=== PATIENT | female | born 1990 | race Caucasian/White ===

== ENCOUNTER 2016-03-24 09:38 | Emergency (ER) | payer MEDICAID ==
[2016-03-24] MEDS ORDERED: guaiFENesin/CODEINE 5 ML UDC PO STA (11:01)
[2016-03-24] MEDS ORDERED: predniSONE 20 MG TABLET PO STA (11:01)
[2016-03-24] MEDS ORDERED: BENZONATATE 100 MG CAPSULE PO STA (11:01)
[2016-03-24] MEDS ORDERED: ALBUTEROL NEB 2.5 MG/3 ML INH STA (11:02)
[2016-03-24] MEDS ORDERED: ONDANSETRON ODT 4 MG TABLET TL STA (11:04)
[2016-03-24] MEDS ORDERED: predniSONE 20 MG TABLET ONE (11:07)
[2016-03-24] MEDS ORDERED: BENZONATATE 100 MG CAPSULE PO ONE (11:07)
[2016-03-24] MEDS ORDERED: ONDANSETRON ODT 4 MG TABLET ONE (11:07)
[2016-03-24] MEDS ORDERED: guaiFENesin/CODEINE 5 ML UDC ONE (11:07)
[2016-03-24] MEDS ORDERED: ALBUTEROL NEB 2.5 MG/3 ML INH ONE (11:09)
== END 2016-03-24 13:37 | disposition home or self-care (01) ==
DX: J06.9 Acute upper respiratory infection, unspecified (principal); B97.89 Other viral agents as the cause of diseases classified elsewhere; J45.909 Unspecified asthma, uncomplicated; F17.200 Nicotine dependence, unspecified, uncomplicated
CPT/HCPCS: 71020; 87275; 87276; 94640; 99283; 99284; A9270; J7512; J7613; Q0162

== ENCOUNTER 2016-04-30 16:24 | Outpatient (CLI) | payer MEDICAID | END 2016-04-30 16:25 | disposition home or self-care (01) | DX: R05 Cough (principal) ==

== ENCOUNTER 2016-06-27 13:40 | Emergency (ER) | payer MEDICAID, OTHER ==
[2016-06-27] MEDS ORDERED: DEXAMETHASONE 10 MG/ML VIAL PO STA (13:58)
[2016-06-27] MEDS ORDERED: CHERRY SYRUP 10 ML UDC PO ONE (14:02)
[2016-06-27] MEDS ORDERED: DEXAMETHASONE 10 MG/ML VIAL ONE (14:02)
== END 2016-06-27 15:04 | disposition home or self-care (01) ==
DX: J02.9 Acute pharyngitis, unspecified (principal); J45.909 Unspecified asthma, uncomplicated; M19.90 Unspecified osteoarthritis, unspecified site; F17.200 Nicotine dependence, unspecified, uncomplicated
CPT/HCPCS: 87070; 87430; 99283; A9270

== ENCOUNTER 2016-08-30 16:35 | Emergency (ER) | payer OTHER ==
[2016-08-30 16:43] VITALS: BP 127/87
[2016-08-30] MEDS ORDERED: IBUPROFEN 400 MG TABLET PO STA (16:57)
[2016-08-30] MEDS ORDERED: ACETAMINOPHEN 325 MG TABLET PO STA (16:57)
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
[2016-08-30] MEDS ORDERED: ACETAMINOPHEN 325 MG TABLET PO ONE (17:04)
[2016-08-30] MEDS ORDERED: IBUPROFEN 400 MG TABLET PO ONE (17:04)
[2016-08-30 18:14] LABS: HCG UR QUAL NEGATIVE
--- NOTE | 2016-08-30 18:36 | XRAY Preliminary Report ---
Exam: XR Foot 3 View RT IMPRESSION: Normal foot radiography. [facility] SITE ID: [id number]
--- NOTE | 2016-08-30 18:38 | XRAY Preliminary Report ---
Exam: XR Ankle 3 View RT IMPRESSION: Normal ankle radiography. [facility] SITE ID: [id number]
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
--- NOTE | 2016-08-30 18:40 | XRAY Report ---
EXAM: RIGHT ANKLE RADIOGRAPHY EXAM DATE: 08/30/2016 06:09 PM. CLINICAL HISTORY: Injury. COMPARISON: None. TECHNIQUE: 3 views. FINDINGS: Bones: Normal. No fractures or bone lesions. Joints: Normal. No effusion. No subluxations. The ankle mortise is normally aligned. Soft Tissues: Normal. No soft tissue swelling. IMPRESSION: Normal ankle radiography. [facility] Referring Provider Line: [phone] SITE ID: [id number]
== END 2016-08-30 19:14 | disposition home or self-care (01) ==
LOC: ED 16:35
DX: S93.401A Sprain of unspecified ligament of right ankle, initial encounter (principal); S93.601A Unspecified sprain of right foot, initial encounter; X50.1XXA Overexertion from prolonged static or awkward postures, initial encounter; Y93.89 Activity, other specified; R03.0 Elevated blood-pressure reading, without diagnosis of hypertension; F17.200 Nicotine dependence, unspecified, uncomplicated
CPT/HCPCS: 73610; 73630; 81025; 99283; A9270

== ENCOUNTER 2016-10-30 08:21 | Outpatient (CLI) | payer OTHER ==
[2016-10-30 12:09] LABS: BILIRUBIN,URINE NEGATIVE (NEGATIVE); PH,URINE 7.5 PH (5.0-7.5)
[2016-10-30 12:19] LABS: WBC,URINE 0-3 /HPF (0-5)
[2016-10-30 18:55] LABS: BASOPHILS # (AUTO) 0.1 10^3/uL (0.0-0.1); BASOPHILS % (AUTO) 0.9 %; EOSINOPHILS # (AUTO) 0.5 10^3/uL (0.0-0.7); EOSINOPHILS % (AUTO) 5.9 %; HCT - HEMATOCRIT 40.2 % (37.0-47.0); HGB - HEMOGLOBIN 13.5 g/dL (12.0-16.0); LYMPHOCYTES # (AUTO) 1.6 10^3/uL (1.5-3.5); LYMPHOCYTES % (AUTO) 20.4 %; MEAN CORPUSCULAR HEMOGLOBIN 33.2 pg (27.0-31.0); MEAN CORPUSCULAR HGB CONC 33.6 g/dL (32.0-36.0); MEAN CORPUSCULAR VOLUME 98.6 fL (81.0-99.0); MEAN PLATELET VOLUME 8.6 fL (7.9-10.8); MONOCYTES # (AUTO) 0.5 10^3/uL (0.0-1.0); MONOCYTES % (AUTO) 6.7 %; NEUTROPHILS # (AUTO) 5.3 10^3/uL (1.5-6.6); NEUTROPHILS % (AUTO) 66.1 %; NUCLEATED RED BLOOD CELLS AUTO 0.1 /100WBC; RED BLOOD COUNT 4.08 10^6/uL (4.20-5.40); RED CELL DISTRIBUTION WIDTH 12.7 % (12.0-15.0)
== END 2016-10-30 08:22 | disposition home or self-care (01) ==
LOC: LAB.F 08:21
PROVIDERS: ATTEND Obstetrics & Gynecology
DX: Z36 Encounter for antenatal screening of mother (principal)
CPT/HCPCS: 36415; 81001; 85025; 86762; 86780; 86850; 86900; 86901; 87340; 87389

== ENCOUNTER 2016-11-15 13:26 | Emergency (ER) | payer OTHER ==
[2016-11-15 13:40] VITALS: BP 127/76
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
== END 2016-11-15 14:30 | disposition home or self-care (01) ==
LOC: ED 13:26
DX: S61.212A Laceration without foreign body of right middle finger without damage to nail, initial encounter (principal); W26.0XXA Contact with knife, initial encounter; F17.209 Nicotine dependence, unspecified, with unspecified nicotine-induced disorders
CPT/HCPCS: 1040M; 99281; 99283

== ENCOUNTER 2017-01-23 07:24 | Outpatient (CLI) | payer OTHER ==
--- NOTE | 2017-01-23 10:31 | Ultrasound Report ---
OB ULTRASOUND: 01/23/2017 CLINICAL INDICATION: anatomy. TECHNIQUE: Real-time scanning was performed with brewery representative static images obtained. LAST MENSTRUAL PERIOD 08/30/2016 Clinical Age 20 weeks 1 day US Age 21 weeks 0 days EFW [place] 398 EFW% Hadlock --- Heart Rate 154 bpm EDC 06/11/2017 US EDC 06/05/2017 BPD [place] 20 weeks 4 days; Mean mm 48 HC [place] 20 weeks 6 days; Mean mm 185 AC [place] 21 weeks 0 days; Mean mm 158 FL [place] 21 weeks 3 days; Mean mm 36 Presentation breech Placental Location anterior Cervical Length 4.8 cm Amniotic Fluid 10.1 cm FINDINGS There is a single viable intrauterine gestation, in breech presentation. heart rate is 154 BPM. The placenta is anterior, without evidence of previa. Amniotic fluid volume is subjectively normal. By size, the fetus measures 21 weeks 0 days (20 weeks 1 day by office dating). The following anatomic structures were visualized and appear normal: The intracranial contents, including the ventricles and posterior fossa; the lips and orbits; the spine; the heart, including 4-chamber view and outflow tracts, and diaphragm; the abdominal contents, including the stomach, the bilateral kidneys, and urinary bladder, as well as a normal 3- vessel cord insertion; 4 limbs. No free fluid or adnexal lesion is appreciated. IMPRESSION: SINGLE VIABLE INTRAUTERINE GESTATION, WITH SIZE IN KEEPING WITH OFFICE DATING. NORMAL ANATOMIC SURVEY. [facility]
== END 2017-01-23 07:25 | disposition home or self-care (01) ==
LOC: DI 07:24
PROVIDERS: ATTEND Obstetrics & Gynecology
DX: Z34.02 Encounter for supervision of normal first pregnancy, second trimester (principal)
CPT/HCPCS: 76811

== ENCOUNTER 2017-02-21 08:58 | Outpatient (CLI) | payer OTHER ==
[2017-02-21 10:14] LABS: HCT - HEMATOCRIT 32.9 % (37.0-47.0); HGB - HEMOGLOBIN 11.7 g/dL (12.0-16.0); MEAN CORPUSCULAR HEMOGLOBIN 33.8 pg (27.0-31.0); MEAN CORPUSCULAR HGB CONC 35.5 g/dL (32.0-36.0); MEAN CORPUSCULAR VOLUME 95.2 fL (81.0-99.0); MEAN PLATELET VOLUME 7.8 fL (7.9-10.8); RED BLOOD COUNT 3.45 10^6/uL (4.20-5.40); RED CELL DISTRIBUTION WIDTH 12.7 % (12.0-15.0); WHITE BLOOD COUNT 8.5 x10^3/uL (4.8-10.8)
== END 2017-02-21 08:59 | disposition home or self-care (01) ==
LOC: LAB 08:58
PROVIDERS: ATTEND Obstetrics & Gynecology
DX: Z34.90 Encounter for supervision of normal pregnancy, unspecified, unspecified trimester (principal)
CPT/HCPCS: 36415; 82950; 86850

== ENCOUNTER 2017-03-17 09:46 | Outpatient (CLI) | payer MEDICAID ==
[2017-03-17 10:24] VITALS: BP 102/63
== END 2017-03-17 10:55 | disposition home or self-care (01) ==
LOC: WFO 09:46 → FBP 09:47 → WFO 10:55
PROVIDERS: ATTEND Obstetrics & Gynecology
DX: O99.89 Other specified diseases and conditions complicating pregnancy, childbirth and the puerperium (principal); R19.7 Diarrhea, unspecified; R11.0 Nausea; Z3A.27 27 weeks gestation of pregnancy
CPT/HCPCS: 99212

== ENCOUNTER 2017-05-13 09:13 | Outpatient (CLI) | payer MEDICAID | END 2017-05-13 09:14 | disposition home or self-care (01) | LOC: LAB.R 09:13 | PROVIDERS: ATTEND Obstetrics & Gynecology | DX: Z36.85 Encounter for antenatal screening for Streptococcus B (principal) | CPT/HCPCS: 87081 ==

== ENCOUNTER 2017-05-28 14:29 | Outpatient (CLI) | payer MEDICAID ==
[2017-05-28 14:47] VITALS: BP 109/71
[2017-05-28 15:46] LABS: RUPTURE OF MEMBRANES PLUS NEGATIVE (NEGATIVE)
--- NOTE | 2017-06-04 09:58 | PROVIDER PROGRESS NOTE ---
Subjective - Prog Note Date Prog Note Date: 05/28/17 Prog Note Time: 15:50 - Subjective Pt reports feeling: No change Subjective: Ms. Palmer is a 27-year-old 3 para 0020 woman at 38 weeks gestation who comes to labor and delivery complaining of uterine cramping occurring every 5 minutes. She reports a vaginal discharge and is uncertain as to whether or not her membranes have ruptured. She has noticed symptoms suggestive of PIH or UTI. She has no recent fevers chills or re-illness. Uterus appropriate size normal resting tone cannot really palpate significant contractions. No tenderness Vagina no blood or discharge ROM test negative Cervix 1 cm 20% to 30% effaced soft -2 station Patient not in labor. She was discharged home with instructions and will keep her next scheduled obstetrical appointment in a week
== END 2017-05-28 15:50 | disposition home or self-care (01) ==
LOC: WFO 14:29 → FBP 14:30 → WFO 15:50
PROVIDERS: ATTEND Obstetrics & Gynecology
DX: Z34.83 Encounter for supervision of other normal pregnancy, third trimester (principal)
CPT/HCPCS: 84112; 99213

== ENCOUNTER 2017-06-06 15:09 | Outpatient (CLI) | payer MEDICAID ==
[2017-06-06 15:25] VITALS: BP 106/58
[2017-06-06] MEDS ORDERED: ZOLPIDEM 5 MG TABLET PO ONE (16:50)
== END 2017-06-06 17:30 | disposition home or self-care (01) ==
LOC: WFO 15:09 → FBP 15:10 → WFO 17:30
PROVIDERS: ATTEND Obstetrics & Gynecology
DX: Z34.83 Encounter for supervision of other normal pregnancy, third trimester (principal)
CPT/HCPCS: 99212; A9270

== ENCOUNTER 2017-06-14 10:31 | Outpatient (CLI) | payer MEDICAID ==
[2017-06-14 12:13] VITALS: BP 115/69
== END 2017-06-14 11:50 | disposition home or self-care (01) ==
LOC: WFO 10:31 → FBP 10:33 → WFO 11:50
PROVIDERS: ATTEND Obstetrics & Gynecology
DX: O47.1 False labor at or after 37 completed weeks of gestation (principal); O99.213 Obesity complicating pregnancy, third trimester; E66.01 Morbid (severe) obesity due to excess calories; Z3A.40 40 weeks gestation of pregnancy; Z68.38 Body mass index [BMI] 38.0-38.9, adult
CPT/HCPCS: 99213

== ENCOUNTER 2017-06-15 09:08 | Outpatient (CLI) | payer MEDICAID ==
[2017-06-15 10:07] LABS: RUPTURE OF MEMBRANES PLUS NEGATIVE (NEGATIVE)
--- NOTE | 2017-06-15 14:29 | PROVIDER PROGRESS NOTE ---
Subjective - Prog Note Date Prog Note Date: 06/15/17 Prog Note Time: 14:25 - Subjective Pt reports feeling: No change (Patient was frightened evaluated on Friday night for uterine contractions which eventually subsided. Baseline cervical exam was 1 cm, 60-70% effaced, Posterior and +1 station. Patient returned this morning suspecting ruptured membranes. Amniotic fluid test was negative and cervix was still at 1 cm 70% and +1 station. She had mild to moderate contractions that were every 4 minutes. tracing was category 1 with a baseline of 130s. Clinically size seen large and ultrasound was obtained. That documented a 4247 g (94th percentile) fetus with abdominal circumference greater than head circumference and in a vertex presentation. JOHNATHAN was normal. Currently labor and delivery was saturated and so ripening could not be offered. She is scheduled to see Dr. Patel on Friday to schedule postdates induction. Will discuss case with Dr. Kemp and Dr. Spangler for a Friday or Friday morning cervical ripening.) Objective - Vital Signs/Intake & Output Vital Signs: Vital Signs x48h Temp Pulse Resp BP Pulse Ox 06/15/17 09:24 98.2 F 84 16 107/70 99 - Lab Results Other Labs: Lab Results x24hrs 06/15/17 Range/Units 08:35 Membranes Rupture NEGATIVE (NEGATIVE)
[2017-06-15 14:38] VITALS: BP 122/80
--- NOTE | 2017-06-15 15:30 | Ultrasound Report ---
EXAM: LIMITED OBSTETRICAL ULTRASOUND EXAM DATE: 06/15/2017 12:32 PM. CLINICAL HISTORY: Postdates. COMPARISON: None. TECHNIQUE: Real-time sonographic evaluation of the fetus performed by the medical laboratory technical officer. Multiple repre sentative static images were saved for review. Additional transvaginal imaging to more accurately joy luate cervical length/placental position/etc. DATING: Established EGA 40 weeks 4 days with PAUL 06/11/2017. GENERAL EVALUATION Mead . Cardiac activity: 122 bpm. movement: Few breath motions with no gross movement. Presentation: Cephalic Placenta: Anterior position. Amniotic fluid: Normal. JOHNATHAN 12.3 cm. MVP 3.7 cm. ANATOMY Biparietal diameter: 9.8 cm. Head circumference: 35.1 cm Abdominal circumference: 37.6 cm Femoral length: 7.8 cm Estimated weight 4247 g in the 94th percentile. MATERNAL STRUCTURES The cervix is not visualized. IMPRESSION: 1. Mead live intrauterine in the cephalic presentation. 2. Estimated weight 4247 g in the 94th percentile. [facility] Referring Provider Line: [phone] SITE ID: [id number]
--- NOTE | 2017-06-15 15:30 | Ultrasound Preliminary Report ---
Exam: US OB LIMITED IMPRESSION: 1. [place] live intrauterine in the cephalic presentation. 2. Estimated weight 4247 g in the 94th percentile. [facility] SITE ID: [id number]
== END 2017-06-15 14:15 | disposition home or self-care (01) ==
LOC: WFO 09:08 → FBP 09:10 → WFO 14:15
PROVIDERS: ATTEND Obstetrics & Gynecology
DX: O47.1 False labor at or after 37 completed weeks of gestation (principal); O48.0 Post-term pregnancy; Z3A.40 40 weeks gestation of pregnancy
CPT/HCPCS: 76815; 84112; 99213

== ENCOUNTER 2017-06-16 04:49 | Inpatient (IN) | payer MEDICAID ==
[2017-06-16] MEDS ORDERED: SODIUM CHLORIDE FLUSH 0.9% 10 ML SYRINGE IVP PRN (06:55)
[2017-06-16 07:41] LABS: BASOPHILS # (AUTO) 0.1 10^3/uL (0.0-0.1); EOSINOPHILS # (AUTO) 0.1 10^3/uL (0.0-0.7); HGB - HEMOGLOBIN 12.6 g/dL (12.0-16.0); LYMPHOCYTES # (AUTO) 1.7 10^3/uL (1.5-3.5); LYMPHOCYTES % (AUTO) 11.1 %; MEAN CORPUSCULAR HEMOGLOBIN 32.8 pg (27.0-31.0); MEAN CORPUSCULAR HGB CONC 35.1 g/dL (32.0-36.0); MEAN CORPUSCULAR VOLUME 93.4 fL (81.0-99.0); MEAN PLATELET VOLUME 8.7 fL (7.9-10.8); MONOCYTES # (AUTO) 0.7 10^3/uL (0.0-1.0); MONOCYTES % (AUTO) 4.4 %; NEUTROPHILS # (AUTO) 12.4 10^3/uL (1.5-6.6); NEUTROPHILS % (AUTO) 82.5 %; PLT - PLATELET COUNT 214 10^3/uL (130-450); RED BLOOD COUNT 3.86 10^6/uL (4.20-5.40)
[2017-06-16] MEDS ORDERED: SODIUM CHLORIDE FLUSH 0.9% 10 ML SYRINGE IVP SCH (09:00)
--- NOTE | 2017-06-16 09:02 | HISTORY & PHYSICAL EXAMINATION ---
DATE OF SERVICE: 06/16/2017 Physician: Oswaldo Hein MD DIAGNOSES 1. A 40-week 1-day gestation. 2. Labor. 3. Large for gestational age fetus (4247 grams, 94th percentile). 4. Asthma, controlled. HISTORY OF PRESENT ILLNESS: The patient is a 27-year-old 2, para 0-0-1-0 (EAB x1) who notes increasing contraction intensity and frequency at 2300 hours on 15 June. Throughout the processing archivist, the intensity increased and she notes pelvic pressure and increased bloody show. She had been seen twice this weekend and her baseline exam was 1 cm, 60%, posterior, and +1 station. Her current exam is 3 cm, 100%, +1 station, and near mid position with soft cervix. Cervical change has been demonstrated. Membranes are intact. Prior Amniostat test was negative. At the time of her last evaluation, Claude maneuvers demonstrated a larger than expected fetus. An ultrasound was obtained on 15 June that documented a 4247 gram, 94th percentile, vertex fetus. Consideration was made for cervical ripening and possible induction before 41 weeks; however, Labor and Delivery was saturated, and elective case could not be admitted. She was given warning sign and call-back instructions. She went into labor last night as previously noted. She reports no air hunger. No wheezing or cough currently. Her asthma is in control with handheld nebulizers. She has no signs or symptoms of preeclampsia. There is no fever or recent illness noted. BASELINE LABS: Pap smear ASCUS, HPV negative, GC chlamydia negative, blood type O positive, antibody screen negative, baseline hemoglobin 13.5, RPR negative, rubella immune. Hepatitis B surface antigen negative, HIV negative, urinalysis normal 1 hour glucose challenge test normal at 132. GBS culture negative. PAST MEDICAL HISTORY 1. Benign breast lump investigated with mammography in 2013, currently resolved. 2. Patient has a history of asthma, currently controlled with a handheld nebulizer. PAST SURGICAL HISTORY: Arthroscopy, 2010. ALLERGIES: SENSITIVE TO PENICILLIN. MEDICATIONS 1. vitamins and iron. 2. Handheld albuterol nebulizer. FAMILY HISTORY: No congenital anomalies or inheritable diseases reported; CAD in grandmother, breast cancer in maternal aunt, diabetes in maternal grandmother. REVIEW OF SYSTEMS CONSTITUTIONAL: Negative. No fevers, chills, shortness of breath, etc. HEENT: No current URIs, bronchitis, etc. CARDIOVASCULAR: Negative. PULMONARY: Negative. Last asthma episode over a month ago. BREASTS: Negative. GASTROINTESTINAL: Negative. GENITOURINARY: Negative. No STD history. MUSCULOSKELETAL: Negative. DERMATOLOGIC: Negative. NEUROLOGIC: Negative except for occasional headache, nonproblematic. PHYSICAL EXAMINATION GENERAL: Patient uncomfortable on hospital [facility]. Contractions noted about every 3 to 2-1/2 minutes. VITAL SIGNS: Normotensive, afebrile. HEENT: Supple neck. No thyromegaly. Moist mucous membranes. LUNGS: Clear to auscultation. CARDIOVASCULAR: Regular. No murmur. No gallop. BREASTS: Negative, deferred. ABDOMEN: Markedly obese with pannus. Liver span about 12-15 cm. UTERUS: Claude maneuvers show LGA fetus, vertex presentation. Contractions about every 3 minutes, moderate. HEART TRACING: Contractions difficult to see on tracing due to body habitus. Baseline 130s, medium variability cat 1 strip. No worrisome decels. EXTREMITIES: Good movement of all 4 extremities, mild pedal edema bilaterally, ruptured varicosity lateral aspect of left calf. No Homans sign. SKIN: No obvious rash or wound. NEUROLOGIC: Grossly intact. Patellar reflexes 3+ and equal. ASSESSMENT: Patient has made a significant change from baseline exam and now appears to be moving into and through late in the labor. The fetus is large, just about the 95th percentile, concerning the abdominal circumference is greater than head circumference. In discussing her diet, she does have an affection for pasta. We may want to check a hemoglobin A1c since her glucose challenge test was 132, close to the 135 cut off. Clinical evaluation though finds the pelvis to be adequate for a 8-1/2 to 9-pound fetus. Additionally, the descent of the head to +1 station is somewhat reassuring. Patient's asthma seems controlled at the current time. PLAN: Patient admitted and desires epidural. Will debrief Dr. Oswaldo Spangler, reconciliation coordinator coming on to call. TD: 06/16/2017 08:23
[2017-06-16] MEDS: LACTATED RINGERS 1,000 ML IV SCH ×4 (11:25→21:07)
[2017-06-16] MEDS ORDERED: fent/BUPIV 2 MCG/0.125% 250 ML EP ONE (12:07)
--- NOTE | 2017-06-16 15:08 | PROVIDER PROGRESS NOTE ---
Labor Progress Note - Uterine Monitoring Uterine Monitoring Mode: positive: External toco (Base line 120-130 with accelerations) : 4-5 Contraction Intensity: positive: Moderate to strong Uterine Resting Tone: positive: Soft - Monitoring Monitor Mode: positive: External ultrasound Heart Rate Baseline: 120-30 Heart Rate Variability: positive: Moderate (6-25 bmp) Accelerations: positive: Present, 15x15 Decelerations: positive: Early, Intermittent (<50% x20 min) - Vaginal Exam Dilation (in cm): 5 Effacement (%): 80 Station: -1 Cervical Position: Midposition - Labor Progress Note Labor Progress Note/Additional Text: Baby is haveing some early deceelerations with contractions BP 90/49 250 Ml bolis given.
[2017-06-16] MEDS ORDERED: fentaNYL 100 MCG/2 ML VIAL ONE (15:44)
[2017-06-16] MEDS ORDERED: ROPIVACAINE 0.2% PF 10 ML VIAL ONE (15:46)
--- NOTE | 2017-06-16 16:34 | PROVIDER PROGRESS NOTE ---
Labor Progress Note - Uterine Monitoring Uterine Monitoring Mode: positive: IUPC Contraction Frequency (min/apart): 3-4 Contraction Intensity: positive: Moderate Uterine Resting Tone: positive: Soft - Monitoring Monitor Mode: positive: Spiral electrode Heart Rate Baseline: 120 Heart Rate Variability: positive: Moderate (6-25 bmp) Accelerations: positive: Absent Decelerations: positive: Early (Resolved with IV bolus of 500 ml) Strip Review: positive: Category II ( accelerations disappeared but beat to beat varrribility still present. Pt had epsods of hypotension responded to fluid challange of 500 ml. early declerations resolved with fluid. Pt has had position change and O2.) - Vaginal Exam Dilation (in cm): 6 Effacement (%): 90 Station: -2 Cervical Position: Midposition - Labor Progress Note Labor Progress Note/Additional Text: cerevix progressing with contractions and time strip improving with fluid challenge. will continue to monitor. OR is on stand by.
[2017-06-16] MEDS ORDERED: TERBUTALINE 1 MG/ML VIAL SUBQ ONE (17:05)
[2017-06-16] MEDS ORDERED: CITRIC ACID/SODIUM CITRATE 15 ML UDC PO ONE (17:17)
[2017-06-16] MEDS ORDERED: ONDANSETRON 4 MG/2 ML VIAL IVP ONE (17:45)
[2017-06-16] MEDS ORDERED: LIDOCAINE-MPF 2% 5 ML VIAL IM ONE (17:45)
[2017-06-16] MEDS ORDERED: DEXAMETHASONE 4 MG/ML VIAL IVP ONE (17:45)
[2017-06-16] MEDS ORDERED: PROPOFOL 200 MG/20 ML VIAL IVP ONE (17:45)
[2017-06-16] MEDS ORDERED: ACETAMINOPHEN 1,000 MG/100 ML 100 ML IV ONE (17:45)
[2017-06-16] MEDS ORDERED: OXYTOCIN 10 UNIT/ML VIAL IV ONE (17:45)
[2017-06-16] MEDS ORDERED: MORPHINE PF 10 MG/10 ML AMP EPI ONE (17:45)
[2017-06-16] MEDS ORDERED: LACTATED RINGERS 1,000 ML IV ONE ×2 (18:02→18:03)
[2017-06-16 18:03] LABS: CORD ARTERIAL BLD BASE EXCESS -4.6; CORD ARTERIAL BLOOD HCO3 22.1; CORD ARTERIAL BLOOD PCO2 46.3; CORD ARTERIAL BLOOD PO2 14.6; CORD ARTERIAL BLOOD TOTAL CO2 23.5; CORD VENOUS BLD PO2 34.8; CORD VENOUS BLOOD PCO2 41.4; CORD VENOUS BLOOD PH 7.334
[2017-06-16 18:04] LABS: CORD VENOUS BLOOD BASE EXCESS -4.1; CORD VENOUS BLOOD HCO3 21.5; CORD VENOUS BLOOD OXYGEN SAT 81.1; CORD VENOUS BLOOD TOTAL CO2 22.8
--- NOTE | 2017-06-16 18:55 | PROVIDER PROGRESS NOTE ---
Labor Progress Note - Uterine Monitoring Uterine Monitoring Mode: positive: IUPC Contraction Frequency (min/apart): 3-4 Contraction Intensity: positive: Moderate to strong Uterine Resting Tone: positive: Soft - Monitoring Monitor Mode: positive: Spiral electrode Heart Rate Baseline: 115-120 Heart Rate Variability: positive: Moderate (6-25 bmp) Accelerations: positive: Present, 15x15 Decelerations: positive: Late (down to the 90-70), Recurrent (>50% x20 min ) Strip Review: positive: Category II - Vaginal Exam Dilation (in cm): 6 Effacement (%): 909 Station: -1 Cervical Position: Midposition - Labor Progress Note Labor Progress Note/Additional Text: pt is a Primip 6 cm with 5 hours of anticipated labor. RnB YSABEL. Late entry 17:14
--- NOTE | 2017-06-16 19:06 | OPERATIVE REPORT ---
Operative Report - General Admit Date: 06/16/17 Procedure Date: 06/16/17 Planned Procedure: PLTC/S Pre-Op Diagnosis: intolerance of Labor Procedure Performed: PLTC/S Post Op Diagnosis: intolerance oflabor, Nucal cord X1 with second loop intersperced - Procedure Note Primary Surgeon: yogi Spangler MD Secondary Surgeon: Becka THAKKAR Anesthesia Provider: Mario Alberto Sadler Anesthesia Technique: Epidural Pathology: Placenta IV Fluids (mL): 1,200 Estimated Blood Loss (mL): 800 Urine Output (mL): 500 Drain/Tube Type: Other (Wound Vac)
[2017-06-16] MEDS ORDERED: diphenhydrAMINE INJ 50 MG/ML VIAL IVP PRN (19:09)
[2017-06-16] MEDS ORDERED: ONDANSETRON 4 MG/2 ML VIAL IVP PRN (19:09)
--- NOTE | 2017-06-16 20:39 | OPERATIVE REPORT ---
DATE OF SERVICE: 06/16/2017 Physician: Oswaldo Spangler MD PREOPERATIVE DIAGNOSES 1. A 27-year-old G1, P0 female, who is 40.6 weeks. 2. intolerance of labor. POSTOPERATIVE DIAGNOSES 1. A 27-year-old G1, P0 female, who is 40.6 weeks. 2. intolerance of labor. 3. Nuchal cord x1 with second bandolier cord. NAME OF PROCEDURE: Primary low transverse section. SURGEON: Oswaldo Spangler MD AGRICULTURAL ENGINEERING TECHNICIAN: NETO Rodriguez, certified nurse lead warehouse associate. ASSEMBLY MACHINE OPERATOR: Mario Alberto Sadler. ANESTHETIC: Epidural with narcotic augmentation. ESTIMATED BLOOD LOSS: 800 mL IV FLUIDS: 1200 mL URINE OUTPUT: 500 mL SPECIMENS: Placenta to pathology. PROCEDURE: Following adequate epidural anesthesia, the patient was placed in the supine position, Mcgregor catheter inserted previously, and then draped. heart rate was noted to be 135 with episodes down to 111. A timeout was performed, following which a Pfannenstiel incision was carried down through the subcutaneous tissue to the fascia. The fascia was incised transversely. Then, using both blunt and sharp dissection, it was freed from the rectus abdominis. The rectus was split along the midline high. Care was taken to avoid injury to bowel or bladder. This incision was carried superiorly and inferiorly. A bladder flap was then developed using both blunt and sharp dissection, following which a low transverse uterine incision was accomplished using a 10 blade and bandage scissors. The head of the was lifted out of the pelvis. The head was delivered. The oropharynx was bulb suctioned. Following this, the remainder of the was delivered without difficulty. At the time of delivery, there was evidence of a nuchal cord with a second loop of cord being interposed between the shoulder and the uterine wall. Amniotic fluid was clear. Placenta was spontaneous delivered. The uterus was exteriorized, wrapped in a moist lap, and cleansed in the internal portion with a dry lap. The incision was closed using a running locking suture of 0 Vicryl with an imbricating layer of 0 Vicryl. This was inspected for hemostasis. This was noted to be intact. The cul-de-sac was then suctioned. Estimated blood loss was determined at that time, and then the cul-de-sac was irrigated with sterile saline. The uterus was delivered back in the abdominal cavity. There was some difficulty with pain control at this time, so her epidural was augmented with IV morphine. The uterine incision was inspected and noted to be dry. The peritoneum was then closed utilizing 2-0 Vicryl. The rectus was irrigated and no bleeders were noted, so the fascia was closed using looped 0 PDS in a running suture. Subcutaneous tissue was irrigated. Bleeders were treated with electrocautery. The fascia was then closed with 2-0 Vicryl. The incision itself was closed using 4-0 Monocryl subcuticular. Following this, a wound VAC was placed, following spraying the area with tincture of benzoin. This showed evidence of a good seal. The patient tolerated the procedure well and was taken to Recovery in stable condition. Sponge and needle counts were correct. TD: 06/16/2017 20:38
[2017-06-16] MEDS ORDERED: OXYTOCIN/SODIUM CHLORIDE 500 ML IV ONE (21:27)
[2017-06-16] MEDS: oxyCODONE 5 MG TABLET PO PRN (21:39)
[2017-06-17] MEDS: KETOROLAC 30 MG/ML VIAL IV SCH ×3 (00:21→13:10)
[2017-06-17] MEDS ORDERED: SODIUM CHLORIDE FLUSH 0.9% 10 ML SYRINGE IVP SCH (01:00)
[2017-06-17] MEDS: oxyCODONE 5 MG TABLET PO PRN ×5 (01:34→20:08)
[2017-06-17] MEDS: ACETAMINOPHEN 500 MG TABLET PO SCH ×3 (01:35→17:57)
[2017-06-17] MEDS: LACTATED RINGERS 1,000 ML IV SCH (02:00)
[2017-06-17 05:36] LABS: BASOPHILS # (AUTO) 0.1 10^3/uL (0.0-0.1); BASOPHILS % (AUTO) 0.4 %; EOSINOPHILS % (AUTO) 0.2 %; HGB - HEMOGLOBIN 10.3 g/dL (12.0-16.0); LYMPHOCYTES # (AUTO) 1.8 10^3/uL (1.5-3.5); LYMPHOCYTES % (AUTO) 10.6 %; MEAN CORPUSCULAR HGB CONC 34.1 g/dL (32.0-36.0); MEAN CORPUSCULAR VOLUME 93.9 fL (81.0-99.0); MEAN PLATELET VOLUME 8.8 fL (7.9-10.8); MONOCYTES % (AUTO) 5.8 %; NEUTROPHILS # (AUTO) 14.3 10^3/uL (1.5-6.6); PLT - PLATELET COUNT 207 10^3/uL (130-450); RED BLOOD COUNT 3.22 10^6/uL (4.20-5.40); RED CELL DISTRIBUTION WIDTH 13.1 % (12.0-15.0); WHITE BLOOD COUNT 17.3 x10^3/uL (4.8-10.8)
--- NOTE | 2017-06-17 08:43 | PROVIDER PROGRESS NOTE ---
Subjective - General Admit Date: 06/16/17 Procedure Date: 06/16/17 Post Op Days: 1 Procedure Performed: PLTC/S - Review of Systems Wound/Incisions: positive: Dressing dry and intact (wound vac functioning well) General: positive: No symptoms HEENT: positive: No symptoms Pulmonary: positive: Wheezing Cardiovascular: positive: No symptoms. negative: Chest pain Gastrointestinal: positive: No symptoms. negative: Vomiting, Flatus Objective - Patient Data Reviewed Vital Signs: Yes Vital Signs: Vital Signs x48h Temp Pulse Resp BP Pulse Ox 06/17/17 08:13 37.2 C 64 16 104/55 L 98 06/17/17 03:25 37.2 C 62 16 97/56 L 98 Weight: Weight 06/15/17 06/16/17 06/17/17 23:59 23:59 23:59 Weight (kg) 108.862 kg Intake & Output: Intake and Output Totals x24h 06/15/17 06/16/17 06/17/17 23:59 23:59 23:59 Intake Total 1271.05 1521.333 Output Total 600 1075 Balance 671.05 446.333 - Lab Results Lab Results: 06/17/17 05:10 Other Lab Results: Lab Results x24hrs 06/17/17 06/16/17 Range/Units 05:10 17:50 WBC 17.3 H (4.8-10.8) x10^3/uL RBC 3.22 L (4.20-5.40) 10^6/uL Hgb 10.3 L (12.0-16.0) g/dL Hct 30.3 L (37.0-47.0) % MCV 93.9 (81.0-99.0) fL MCH 32.0 H (27.0-31.0) pg MCHC 34.1 (32.0-36.0) g/dL RDW 13.1 (12.0-15.0) % Plt Count 207 (130-450) 10^3/uL MPV 8.8 (7.9-10.8) fL Neut # 14.3 H (1.5-6.6) 10^3/uL Lymph # 1.8 (1.5-3.5) 10^3/uL Nelson # 1.0 (0.0-1.0) 10^3/uL Eos # 0.0 (0.0-0.7) 10^3/uL Baso # 0.1 (0.0-0.1) 10^3/uL Absolute Nucleated RBC 0.00 x10^3/uL Nucleated RBC % 0.0 /100WBC Cord ABG pH 7.296 Cord ABG pCO2 46.3 Cord ABG pO2 14.6 Cord ABG HCO3 22.1 Cord ABG Total CO2 23.5 Cord ABG Base Excess -4.6 Cord ABG O2 Sat 31.3 Cord VBG pH 7.334 Cord VBG pCO2 41.4 Cord VBG pO2 34.8 Cord VBG HCO3 21.5 Cord VBG Total CO2 22.8 Cord VBG Base Excess -4.1 Cord VBG O2 Sat 81.1 - Current Medications Current Medications: Current Medications Generic Name Dose Route Start Last Admin Trade Name Freq PRN Reason Stop Dose Admin Acetaminophen 1,000 mg 06/16/17 20:00 06/17/17 01:35 Tylenol PO 1,000 mg Q8H AILEEN Administration Lactated Ringer's 1,000 mls @ 100 mls/hr 06/16/17 20:00 06/17/17 02:00 Lr IV 100 mls/hr .Q10H AILEEN Administration Ketorolac Tromethamine 30 mg 06/16/17 20:00 06/17/17 06:26 Toradol Inj IV 06/17/17 14:01 30 mg Q6H AILEEN Administration Oxycodone HCl 5 mg 06/16/17 19:09 06/17/17 06:26 Roxicodone PO 5 mg Q4HR PRN Administration PAIN - Physical Exam Wound/Incisions: positive: Dressing dry and intact, No drainage General Appearance: positive: No acute distress (Pain 3/10. good control by Pt) ENT: positive: ENT inspection nml Respiratory: positive: Wheezes (throughout) Cardiovascular: positive: Regular rate & rhythm, No murmur, No gallop Abdomen: positive: Nml bowel sounds, No distention. negative: Guarding Back: negative: CVA tenderness (R), CVA tenderness (L) Skin: positive: Color nml, No rash Neurologic/Psychiatric: positive: Oriented x3 Impression/Plan - Problem List Problem List: POD #1 progressing well. bowel function returning Asthma needs meds.pharmacy involved
[2017-06-17] MEDS: DOCUSATE SODIUM 100 MG CAPSULE PO SCH ×3 (09:34→21:11)
[2017-06-17] MEDS: SIMETHICONE CHEW 80 MG TABLET PO SCH ×4 (09:34→17:57)
[2017-06-17] MEDS: SODIUM CHLORIDE FLUSH 0.9% 10 ML SYRINGE IVP PRN ×2 (09:35→13:10)
[2017-06-17] MEDS: MONTELUKAST 10 MG TABLET PO SCH ×2 (11:12→21:18)
[2017-06-17] MEDS: ALBUTEROL NEB 2.5 MG/3 ML INH PRN (11:23)
[2017-06-17] MEDS: BUDESONIDE 0.5 MG/2 ML NEB INH SCH (11:24)
[2017-06-17] MEDS ORDERED: RHO(D) IMMUNE GLOBULIN 300 MCG SYRINGE IM ONE (14:33)
[2017-06-17] MEDS: IBUPROFEN 800 MG TABLET PO SCH (20:10)
[2017-06-18] MEDS: oxyCODONE 5 MG TABLET PO PRN ×5 (00:12→21:36)
[2017-06-18] MEDS: ACETAMINOPHEN 500 MG TABLET PO SCH ×3 (02:00→20:01)
[2017-06-18] MEDS: IBUPROFEN 800 MG TABLET PO SCH ×4 (02:01→20:02)
[2017-06-18] MEDS: BUDESONIDE 0.5 MG/2 ML NEB INH SCH ×3 (07:23→19:00)
[2017-06-18] MEDS: ALBUTEROL NEB 2.5 MG/3 ML INH PRN ×2 (07:24→19:00)
[2017-06-18] MEDS: SIMETHICONE CHEW 80 MG TABLET PO SCH ×3 (09:04→21:36)
[2017-06-18] MEDS: DOCUSATE SODIUM 100 MG CAPSULE PO SCH ×2 (09:04→21:36)
--- NOTE | 2017-06-18 11:11 | PROVIDER PROGRESS NOTE ---
Subjective - General Admit Date: 06/16/17 Procedure Date: 06/16/17 Post Op Days: 2 Procedure Performed: PLTC/S - Review of Systems Wound/Incisions: positive: Dressing dry and intact (Good suction), No drainage General: positive: No symptoms (Pain 4/10. Pt notes good pain control. instructed to take pain meds as needed. Learning to bresatfeed) HEENT: positive: No symptoms Pulmonary: positive: No symptoms (Taking her asthma meds.), Wheezing Cardiovascular: positive: No symptoms. negative: Chest pain Gastrointestinal: positive: No symptoms, Flatus. negative: Vomiting Genitourinary: positive: No symptoms (voiding) Musculoskeletal: positive: No symptoms Objective - Patient Data Reviewed Vital Signs: Yes Vital Signs: Vital Signs x48h Temp Pulse Pulse Pulse Resp BP Pulse Ox 06/18/17 08:06 37.1 C 80 17 97 06/18/17 07:28 80 16 06/18/17 04:15 36.4 C L 68 20 97/60 96 Weight: Weight 06/16/17 06/17/17 06/18/17 23:59 23:59 23:59 Weight (kg) 108.862 kg Intake & Output: Intake and Output Totals x24h 06/16/17 06/17/17 06/18/17 23:59 23:59 23:59 Intake Total 1271.05 3179.666 Output Total 600 4950 Balance 671.05 -1770.334 - Lab Results Lab Results: 06/17/17 05:10 Other Lab Results: Lab Results x24hrs 06/17/17 Range/Units 05:10 Blood Type O NEGATIVE Maternal Bleed NEGATIVE (NEGATIVE) - Current Medications Current Medications: Current Medications Generic Name Dose Route Start Last Admin Trade Name Freq PRN Reason Stop Dose Admin Acetaminophen 1,000 mg 06/16/17 20:00 06/18/17 10:55 Tylenol PO 1,000 mg Q8H AILEEN Administration Albuterol 2.5 mg 06/17/17 08:43 06/18/17 07:24 INH 2.5 mg RTQ4H PRN Administration Wheezing Budesonide 0.5 mg 06/17/17 10:00 06/18/17 07:24 Pulmicort INH 0.5 mg RTBID AILEEN Administration Docusate Sodium 100 mg 06/16/17 21:00 06/18/17 09:04 Colace 100mg Capsule PO 100 mg BID AILEEN Administration Lactated Ringer's 1,000 mls @ 100 mls/hr 06/16/17 20:00 06/17/17 09:35 Lr IV 0 mls/hr .Q10H AILEEN Infusion Ibuprofen 800 mg 06/17/17 20:00 06/18/17 09:04 Motrin PO 800 mg Q6H AILEEN Administration Montelukast Sodium 10 mg 06/17/17 09:00 06/17/17 21:18 Singulair PO 10 mg QPM AILEEN Administration Oxycodone HCl 5 mg 06/16/17 19:09 06/18/17 09:04 Roxicodone PO 5 mg Q4HR PRN Administration PAIN Simethicone 80 mg 06/16/17 22:00 06/18/17 09:04 Mylicon PO 80 mg TID AILEEN Administration Sodium Chloride 10 ml 06/16/17 19:09 06/17/17 13:10 Normal Saline Flush 0.9% IVP 10 ml PRN PRN Administration NEEDED PER PROVIDER ORDERS - Physical Exam Wound/Incisions: positive: Healing well (Wound vac good suction), Dressing dry and intact, No drainage General Appearance: positive: No acute distress, Alert Respiratory: positive: Chest non-tender, No respiratory distress, Wheezes (Mild) Cardiovascular: positive: Regular rate & rhythm Abdomen: positive: Non-tender, Nml bowel sounds, No distention, Tenderness (as expected), Mass (U-2). negative: Guarding, Rebound Extremities: positive: Non-tender. negative: Calf tenderness, Raiza's sign/ cords Neurologic/Psychiatric: positive: Oriented x3 Impression/Plan - Problem List Problem List: POD #2 progressing learning to brest feed. Ashtma good control..
[2017-06-18] MEDS: MONTELUKAST 10 MG TABLET PO SCH (21:43)
[2017-06-19] MEDS: oxyCODONE 5 MG TABLET PO PRN ×3 (01:14→21:50)
[2017-06-19] MEDS: IBUPROFEN 800 MG TABLET PO SCH ×4 (01:35→21:49)
[2017-06-19] MEDS: ACETAMINOPHEN 500 MG TABLET PO SCH ×3 (04:05→21:49)
[2017-06-19] MEDS: BUDESONIDE 0.5 MG/2 ML NEB INH SCH ×2 (08:13→18:42)
[2017-06-19] MEDS: ALBUTEROL NEB 2.5 MG/3 ML INH PRN ×2 (08:13→18:42)
--- NOTE | 2017-06-19 09:34 | PROVIDER PROGRESS NOTE ---
Subjective - General Admit Date: 06/16/17 Procedure Date: 06/16/17 Post Op Days: 3 Procedure Performed: PLTC/S - Review of Systems Wound/Incisions: positive: Healing well (Wound vac good suction), Dressing dry and intact, No drainage General: positive: No symptoms (Pt is not sleeping well. emotional this AM. Pain controled with Motrin.06/24) HEENT: positive: No symptoms Pulmonary: positive: No symptoms (Taking her asthma meds.), Wheezing Cardiovascular: positive: No symptoms. negative: Chest pain Gastrointestinal: positive: No symptoms, Flatus. negative: Vomiting Genitourinary: positive: No symptoms (voiding) Musculoskeletal: positive: No symptoms Objective - Patient Data Reviewed Vital Signs: Yes Vital Signs: Vital Signs x48h Temp Pulse Pulse Pulse Resp BP Pulse Ox 06/19/17 09:11 36.7 C 95 20 114/78 99 06/19/17 08:15 80 16 06/19/17 04:04 36.6 C 71 12 103/57 L 99 Intake & Output: Intake and Output Totals x24h 06/17/17 06/18/17 06/19/17 23:59 23:59 23:59 Intake Total 3179.666 Output Total 4950 Balance -1770.334 - Lab Results Lab Results: 06/17/17 05:10 - Current Medications Current Medications: Current Medications Generic Name Dose Route Start Last Admin Trade Name Freq PRN Reason Stop Dose Admin Acetaminophen 1,000 mg 06/16/17 20:00 06/19/17 04:05 Tylenol PO 1,000 mg Q8H AILEEN Administration Albuterol 2.5 mg 06/17/17 08:43 06/19/17 08:13 INH 2.5 mg RTQ4H PRN Administration Wheezing Budesonide 0.5 mg 06/17/17 10:00 06/19/17 08:13 Pulmicort INH 0.5 mg RTBID AILEEN Administration Docusate Sodium 100 mg 06/16/17 21:00 06/18/17 21:36 Colace 100mg Capsule PO 100 mg BID AILEEN Administration Lactated Ringer's 1,000 mls @ 100 mls/hr 06/16/17 20:00 06/17/17 09:35 Lr IV 0 mls/hr .Q10H AILEEN Infusion Ibuprofen 800 mg 06/17/17 20:00 06/19/17 01:35 Motrin PO 800 mg Q6H AILEEN Administration Montelukast Sodium 10 mg 06/17/17 09:00 06/18/17 21:43 Singulair PO 10 mg QPM AILEEN Administration Oxycodone HCl 5 mg 06/16/17 19:09 06/19/17 01:14 Roxicodone PO 5 mg Q4HR PRN Administration PAIN Simethicone 80 mg 06/16/17 22:00 06/18/17 21:36 Mylicon PO 80 mg TID AILEEN Administration Sodium Chloride 10 ml 06/16/17 19:09 06/17/17 13:10 Normal Saline Flush 0.9% IVP 10 ml PRN PRN Administration NEEDED PER PROVIDER ORDERS - Physical Exam Wound/Incisions: positive: Dressing dry and intact (Wound Vac good suction) General Appearance: positive: No acute distress Respiratory: positive: Chest non-tender, No respiratory distress, Wheezes Cardiovascular: positive: Regular rate & rhythm, No murmur Abdomen: positive: Nml bowel sounds, Tenderness (At uterus), Mass (U-2). negative: Guarding, Rebound Extremities: negative: Calf tenderness, Raiza's sign/cords Neurologic/Psychiatric: positive: Oriented x3 (Pt is emotional not being able to sleep.) Impression/Plan - Problem List Problem List: POD # 3 Doing well fro her surgery. Emotional secondary fro lack of sleep and overwhelmed Baby loosing weigh may need frenulem clipped. donor services specialist engaged.
[2017-06-19] MEDS: SIMETHICONE CHEW 80 MG TABLET PO SCH ×3 (09:35→21:50)
[2017-06-19] MEDS: DOCUSATE SODIUM 100 MG CAPSULE PO SCH ×2 (09:35→21:49)
[2017-06-19] MEDS: MONTELUKAST 10 MG TABLET PO SCH (21:50)
[2017-06-20] MEDS: oxyCODONE 5 MG TABLET PO PRN ×3 (02:46→10:15)
[2017-06-20] MEDS: IBUPROFEN 800 MG TABLET PO SCH ×2 (04:07→10:14)
[2017-06-20] MEDS: ACETAMINOPHEN 500 MG TABLET PO SCH (06:30)
[2017-06-20] MEDS: BUDESONIDE 0.5 MG/2 ML NEB INH SCH (07:31)
[2017-06-20] MEDS: ALBUTEROL NEB 2.5 MG/3 ML INH PRN (07:31)
--- NOTE | 2017-06-20 08:22 | PROVIDER PROGRESS NOTE ---
Subjective - General Admit Date: 06/16/17 Procedure Date: 06/16/17 Post Op Days: 4 Procedure Performed: PLTC/S - Review of Systems Wound/Incisions: positive: Dressing dry and intact (Wound Vac good suction), No drainage General: positive: No symptoms (Sleeping better. Feels improved Pain controled with Motrin.06/24) HEENT: positive: No symptoms Pulmonary: positive: No symptoms (Taking her asthma meds.), Wheezing Cardiovascular: positive: No symptoms. negative: Chest pain Gastrointestinal: positive: No symptoms, Flatus. negative: Vomiting Genitourinary: positive: No symptoms (voiding) Musculoskeletal: positive: No symptoms Objective - Patient Data Reviewed Vital Signs: Yes Vital Signs: Vital Signs x48h Temp Pulse Pulse Resp BP Pulse Ox 06/20/17 07:31 75 16 06/20/17 02:00 36.7 C 76 18 102/54 L 98 Intake & Output: Intake and Output Totals x24h 06/18/17 06/19/17 06/20/17 23:59 23:59 23:59 Intake Total 241.667 Balance 241.667 - Lab Results Lab Results: 06/17/17 05:10 - Current Medications Current Medications: Current Medications Generic Name Dose Route Start Last Admin Trade Name Freq PRN Reason Stop Dose Admin Acetaminophen 1,000 mg 06/16/17 20:00 06/20/17 06:30 Tylenol PO 1,000 mg Q8H AILEEN Administration Albuterol 2.5 mg 06/17/17 08:43 06/20/17 07:31 INH 2.5 mg RTQ4H PRN Administration Wheezing Budesonide 0.5 mg 06/17/17 10:00 06/20/17 07:31 Pulmicort INH 0.5 mg RTBID AILEEN Administration Docusate Sodium 100 mg 06/16/17 21:00 06/19/17 21:49 Colace 100mg Capsule PO 100 mg BID AILEEN Administration Lactated Ringer's 1,000 mls @ 100 mls/hr 06/16/17 20:00 06/19/17 21:00 Lr IV Infused .Q10H AILEEN Infusion Ibuprofen 800 mg 06/17/17 20:00 06/20/17 04:07 Motrin PO 800 mg Q6H AILEEN Administration Montelukast Sodium 10 mg 06/17/17 09:00 06/19/17 21:50 Singulair PO 10 mg QPM AILEEN Administration Oxycodone HCl 5 mg 06/16/17 19:09 06/20/17 06:30 Roxicodone PO 5 mg Q4HR PRN Administration PAIN Simethicone 80 mg 06/16/17 22:00 06/19/17 21:50 Mylicon PO Not Given TID AILEEN Sodium Chloride 10 ml 06/16/17 19:09 06/17/17 13:10 Normal Saline Flush 0.9% IVP 10 ml PRN PRN Administration NEEDED PER PROVIDER ORDERS - Physical Exam Wound/Incisions: positive: Dressing dry and intact, No drainage General Appearance: positive: No acute distress, Alert (Affect improved.) Respiratory: positive: Chest non-tender, No respiratory distress, Breath sounds nml Cardiovascular: positive: Regular rate & rhythm, No murmur Abdomen: positive: Non-tender, Nml bowel sounds, No distention, Mass (U-3). negative: Guarding, Rebound Back: negative: CVA tenderness (R), CVA tenderness (L) Extremities: positive: Pedal edema (=2). negative: Calf tenderness, Raiza's sign/cords Neurologic/Psychiatric: positive: Oriented x3 Impression/Plan - Problem List Problem List: POD #4 will Discharge to home Discharge meds Oxycodone 5 mg #20 Motrin 800 gm #30 Colace 100 mg #60 RtC Friday for wound vac removal.
--- NOTE | 2017-06-20 08:28 | Discharge Plan ---
Discharge Plan Disposition: 01 Home, Self Care Condition: Good Diet: Regular Activity Restrictions: Pelvic rest 6 weeks Shower Restrictions: No Driving Restrictions: No (not while taking narcotics) Weight Bearing: Full Weight No Smoking: If you smoke, Please STOP! Call for help.
[2017-06-20] MEDS: SIMETHICONE CHEW 80 MG TABLET PO SCH (08:52)
[2017-06-20] MEDS: DOCUSATE SODIUM 100 MG CAPSULE PO SCH (08:53)
--- NOTE | 2017-06-20 09:51 | DISCHARGE SUMMARY ---
Physician: Oswaldo Spangler MD DATE OF ADMISSION: 06/16/2017 DATE OF DISCHARGE: 06/20/2017 ADMITTING DIAGNOSES 1. 40.1 weeks. 2. Active labor. 3. Estimated large for gestational age baby, 94th percentile. 4. Asthma. DISCHARGE DIAGNOSES 1. 40.1 weeks. 2. Active labor. 3. Asthma. 4. intolerance of labor. PROCEDURES 1. Epidural. 2. Primary low transverse section. PRESENTING HISTORY: The patient is a 27-year-old, G2, P0 female who was 40.1 weeks' gestation. She presented with contractions which started at 11 o'clock the morning before admission. They became increasingly strong over time. Her exam on admission showed a cervix 3 cm, 100 percent effaced, +1 station, midposition. PAST MEDICAL HISTORY: Positive for asthma. She had good care. LABORATORIES: Patient's CBC on admission showed a white count of 15,000, hemoglobin was 12.6, hematocrit was 36.0, platelets were 214 postop day #1, her white count was 17.3 , hemoglobin was 10.3, hematocrit 30.3, platelets were 207. HOSPITAL COURSE: The patient was admitted, allowed to labor. An epidural was placed for labor analgesia. Her strip initially was category 1; however, with time, this decreased to a category 2. She lost some of her variability. She had some episodes of hypotension, which were treated with boluses of normal saline. She did develop a drop her baseline from 130s down to 120s to 110s. She developed decelerations down to the 80s and 90s. Because she was only 6 cm and further time expected it was felt that performing a section would be preferable. She did undergo a primary low transverse section, at which time a live was delivered. There was evidence of a nuchal cord with a secondary cord, which was interspace between the head and the lower uterine segment. The cord was somewhat thin in nature. The infant responded well. The postop course has been unremarkable with the exception that the patient has had some difficulty with emotional lability and there are also concerns about support at home. The infant also had some difficulty gaining weight. For this reason, she stayed for the entire 4 days postoperatively. She is now ambulating with excellent pain control. She is being discharged to home on: 1. Oxycodone 5 mg, #20. 2. Motrin 800 mg, #30. 3. Colace 100 mg, #60. She is to return to the office on Friday, at which time her wound VAC will be removed. She has been cautioned regarding increasing pain, bleeding, as well as signs and symptoms of mastitis. At this point, she is considering the Nexplanon for contraception. TD: 06/20/2017 09:50 [email or web address]
[2017-06-20 13:24] VITALS: BP 116/62
--- NOTE | 2017-06-20 13:41 | Labor Flowsheet ---
Labor Flowsheet Datetime Report Generated by CPN: 06/20/2017 13:41 Datetime: 06/16/2017 17:14 Pulse: 99 SpO2 (%): 100 LaborFlag: Labor Datetime: 06/16/2017 17:00 VITAL SIGNS NBP Sys/Brook/Mean (mmHg): 101 : 49 : 61 Datetime: 06/16/2017 16:44 UTERINE ACTIVITY Monitor Mode: Internal Frequency (min): 70 Duration (sec): 70 Pattern: Normal: <= 5 Contractions in 10 Minutes Resting Tone (Palpate): Relaxed Resting Tone IUP (mmHg): 20 Intensity IUP (mmHg): 50-80 ASSESSMENT A Monitor Mode: Internal Scalp Electrode Variability: Moderate 6-25 bpm Accelerations: 15X15 Decelerations: Variable Category: Category II Datetime: 06/16/2017 16:43 ANESTHESIA Anesthesia Plans: Epidural Anesthesia Level Check: T8- Ribs Datetime: 06/16/2017 16:36 Oxygen Amount (LPM): 10 Oxygen Method: Non-Rebreather Patient Position/Activity: Left Lateral Datetime: 06/16/2017 16:32 Pitocin Checklist: No More than 5 Uterine Contractions in 10 Minutes for any 20 Minute Interval; Ut erus Palpates Soft between Contractions; IUPC Resting Tone less than 25 mmHg FHR Baseline Rate : 120 Datetime: 06/16/2017 16:29 Stage of : Labor Respirations: 20 Temperature (C): 36.7 Datetime: 06/16/2017 16:13 Communication Comments: Relinquished care to RN Christina Datetime: 06/16/2017 16:00 Comments: unable to determin what type of decelration Datetime: 06/16/2017 15:57 Patient Care Comments: FSE placed Datetime: 06/16/2017 15:40 VAGINAL EXAM Dilatation (cm): 6.0 Effacement (%): 90 Station: -1 Exam by: Dr. Spangler Anesthesia Comments: Twyla Sadler @BS Datetime: 06/16/2017 15:23 PATIENT CARE IV/Blood Work: IV Bolus Started Datetime: 06/16/2017 15:21 Strip Reviewed by: Dr. Giem Datetime: 06/16/2017 15:15 Quality: Strong Datetime: 06/16/2017 14:55 Monitor Interventions for UA: Point Possession Adjusted Datetime: 06/16/2017 14:53 Monitor Interventions for FHR: Ultrasound Adjusted Datetime: 06/16/2017 14:30 Membrane Status: Ruptured Membranes Rupture Method: Artificial Amniotic Fluid Color: Clear Amniotic Fluid Amount: Small Datetime: 06/16/2017 14:17 Temperature Route: Oral Datetime: 06/16/2017 14:15 Cervix, Consistency: Moderate Cervix, Position: Anterior Datetime: 06/16/2017 14:12 I/O Interventions: Straight Cath (ml) @ 600 Datetime: 06/16/2017 14:01 FHR Baseline Changes: No Baseline Change Datetime: 06/16/2017 12:48 COMMUNICATION Communication: Provider at Bedside Datetime: 06/16/2017 12:36 Epidural Procedure Other: Pump Started Datetime: 06/16/2017 12:27 Epidural Procedure: Loading Dose Datetime: 06/16/2017 12:06 PROCEDURE TIME OUT Procedure Verify: Correct Patient Identity; Correct Side and Site are Marked; Accurate Procedure Co nsent Form; Agreement on Procedure to be Done; Correct Patient Position; Addressed Need to Administer Antibiotics or Fluids for Irrigation; Safety Precautions Based on Patient History or Medication Use Epidural Positioning: Sitting Datetime: 06/16/2017 11:26 MATERNAL ASSESSMENT Level of Consciousness: Fully Conscious Headache: Denies Breath Sounds, Left: Clear and Equal Breath Sounds, Right: Clear and Equal RUQ Epigastric Pain: Denies
== END 2017-06-20 12:40 | disposition home or self-care (01) | DRG 765 ==
LOC: WFO 04:49 → FBP 04:52 → WFO 10:41
PROVIDERS: ADMIT Obstetrics & Gynecology; ATTEND Obstetrics & Gynecology
PROC: 10H07YZ Insertion of Other Device into Products of Conception, Via Natural or Artificial Opening (ICD-10-PCS; 2017-06-16)
PROC: 10D00Z1 Extraction of Products of Conception, Low, Open Approach (ICD-10-PCS; principal; 2017-06-16 17:03)
DX: O48.0 Post-term pregnancy (principal); O26.53 Maternal hypotension syndrome, third trimester; O99.52 Diseases of the respiratory system complicating childbirth; J45.909 Unspecified asthma, uncomplicated; O76 Abnormality in fetal heart rate and rhythm complicating labor and delivery; O69.81X0 Labor and delivery complicated by cord around neck, without compression, not applicable or unspecified; O90.89 Other complications of the puerperium, not elsewhere classified; R45.86 Emotional lability; Z3A.40 40 weeks gestation of pregnancy; Z37.0 Single live birth; Z60.8 Other problems related to social environment
CPT/HCPCS: 36415; 82803; 83033; 85025; 86900; 86901; 88307; 94640; 99213

== ENCOUNTER 2017-06-24 15:42 | Outpatient (CLI) | payer MEDICAID ==
--- NOTE | 2017-06-24 17:24 | Ultrasound Preliminary Report ---
Exam: US DUPLEX EXT VEINS LEFT IMPRESSION: No evidence for deep venous thrombosis. [facility] SITE ID: [id number]
--- NOTE | 2017-06-24 17:24 | Ultrasound Report ---
EXAM: LEFT LOWER EXTREMITY VENOUS ULTRASOUND EXAM DATE: 06/24/2017 04:31 PM. CLINICAL HISTORY: LEFT ANKLE EDEMA,POST SURGERY. COMPARISON: 07/18/2010 bilateral lower extremity venous duplex. TECHNIQUE: Real-time sonographic vascular imaging was performed by the senior lead project manager through the lower extremity utilizing both color-flow and Doppler spectral analysis. Multiple patient portal representative static gabby ges were saved for review. FINDINGS: Common Femoral Vein (CFV): Normal. CFV-GSV Junction: Normal. Profunda Femoral Vein (PFV): Normal. Femoral Vein (FV) Prox: Normal. Femoral Vein (FV) Mid: Normal. Femoral Vein (FV) Dist: Normal. Popliteal Vein: Normal. Posterior Tibial Veins: Normal. Peroneal Veins: Normal. IMPRESSION: No evidence for deep venous thrombosis. [facility] Referring Provider Line: [phone] SITE ID: [id number]
== END 2017-06-24 15:43 | disposition home or self-care (01) ==
LOC: DI 15:42
PROVIDERS: ATTEND Obstetrics & Gynecology
DX: R60.9 Edema, unspecified (principal); Z98.890 Other specified postprocedural states

== ENCOUNTER 2018-03-23 09:34 | Emergency (ER) | payer MEDICAID ==
[2018-03-23] MEDS ORDERED: ONDANSETRON ODT 4 MG TABLET TL STA (12:07)
[2018-03-23] MEDS ORDERED: LOPERAMIDE 2 MG CAPSULE PO STA (12:07)
--- NOTE | 2018-03-23 12:26 | ED Physician Documentation ---
History of Present Illness - Stated complaint Stated Complaint: VOMITING/DIARRHEA - Chief complaint Chief Complaint: General - Additonal information Additional information: hx from pt 28 y/o female fever cough NVD body aches X 4 days sick contacts at work no travel no bad food LMP now denies preg Review of Systems Constitutional: reports: Fever, Chills, Myalgias Respiratory: reports: Cough GI: reports: Nausea, Vomiting, Diarrhea. denies: Hematemesis, Bloody / black stool : reports: LMP (now). denies: Now EGA Endocrine: denies: Easy bruising / bleeding Immunocompromised: denies: Immunocompromised PD PAST MEDICAL HISTORY - Past Medical History Cardiovascular: None Respiratory: Asthma Endocrine/Autoimmune: None GI: None : None HEENT: Other Psych: Claustrophobia Musculoskeletal: Osteoarthritis Derm: None - Past Surgical History Past Surgical History: Yes Ortho: Arthroscopic surgery, Carpal Tunnel surgery - Present Medications Home Medications: Ambulatory Orders Medication Instructions Recorded Confirmed Albuterol Sulfate [Proair Hfa] 8.5 gm IH TID PRN 11/27/12 03/23/18 Montelukast Sodium [Singulair] 10 mg PO DAILY 09/07/14 03/23/18 Tiotropium [place] [Spiriva] 2 puffs IN DAILY 12/30/14 03/23/18 Benzonatate [Tessalon Perle] 100 mg PO TID PRN #20 capsule 03/23/18 Loperamide [Imodium] 2 mg PO Q4H PRN #12 capsule 03/23/18 Ondansetron Odt [Zofran] 4 mg TL Q6H PRN #10 tablet 03/23/18 guaiFENesin/DEXTROMETHORPHAN 10 ml PO Q6H PRN #120 ml 03/23/18 [Robitussin Dm] - Allergies Allergies/Adverse Reactions: Allergies Allergy/AdvReac Type Severity Reaction Status Date / Time Penicillins Allergy Unknown Unknown Verified 03/23/18 10:00 Band-aids AdvReac Intermediate Rash Uncoded 03/23/18 10:00 - Social History Does the pt smoke?: Yes Smoking Status: Current every day smoker Does the pt drink ETOH?: Yes Does the pt have substance abuse?: No - Immunizations Immunizations are current?: Yes - POLST Patient has POLST: No PD ED PE NORMAL - Vitals Vital signs reviewed: Yes - General General: Alert and oriented X 3 - Neck Neck: Supple, no meningeal sign - Cardiac Cardiac: RRR - Respiratory Respiratory: No respiratory distress, Clear bilaterally - Abdomen Abdomen: Non tender - Derm Derm: Normal color - Neuro Neuro: Alert and oriented X 3 Results - Vitals Vitals: Vital Signs - 24 hr 03/23/18 03/23/18 09:45 11:47 Temperature 36.3 C L 36.8 C Heart Rate 94 75 Respiratory 16 17 Rate Blood Pressure 119/77 118/80 O2 Saturation 99 98 Oxygen O2 Source Room air - Labs Labs: Laboratory Tests 03/23/18 09:57 Influenza A (Rapid) Negative Influenza B (Rapid) Negative Departure - Departure Disposition: Home, Self Care Clinical Impression: Viral syndrome Condition: Good Instructions: ED Viral Syndrome Follow-Up: Malinda Martinez ARNP [Primary Care Provider] - Prescriptions: Benzonatate [Tessalon Perle] 100 mg PO TID PRN #20 capsule PRN Reason: Cough guaiFENesin/DEXTROMETHORPHAN [Robitussin Dm] 10 ml PO Q6H PRN #120 ml PRN Reason: Cough Loperamide [Imodium] 2 mg PO Q4H PRN #12 capsule PRN Reason: Diarrhea Ondansetron Odt [Zofran] 4 mg TL Q6H PRN #10 tablet PRN Reason: Nausea / Vomiting Comments: The flu swabs were negative The ER staff will call you if the stool culture results indicate you need antibiotics Forms: Activity restrictions
[2018-03-23 12:47] VITALS: BP 115/81
== END 2018-03-23 12:40 | disposition home or self-care (01) ==
LOC: ED 09:34
DX: B34.9 Viral infection, unspecified (principal); F17.200 Nicotine dependence, unspecified, uncomplicated
CPT/HCPCS: 87045; 87046; 87275; 87276; 99283; A9270; Q0162

== ENCOUNTER 2018-05-27 10:28 | Outpatient (CLI) | payer MEDICAID ==
[2018-05-27 18:07] LABS: BASOPHILS # (AUTO) 0.1 10^3/uL (0.0-0.1); BASOPHILS % (AUTO) 0.7 %; EOSINOPHILS # (AUTO) 0.7 10^3/uL (0.0-0.7); EOSINOPHILS % (AUTO) 9.6 %; HGB - HEMOGLOBIN 14.7 g/dL (12.0-16.0); LYMPHOCYTES # (AUTO) 2.2 10^3/uL (1.5-3.5); LYMPHOCYTES % (AUTO) 30.6 %; MEAN CORPUSCULAR HEMOGLOBIN 32.5 pg (27.0-31.0); MEAN CORPUSCULAR HGB CONC 33.9 g/dL (32.0-36.0); MEAN CORPUSCULAR VOLUME 95.7 fL (81.0-99.0); MEAN PLATELET VOLUME 8.7 fL (7.9-10.8); MONOCYTES # (AUTO) 0.5 10^3/uL (0.0-1.0); MONOCYTES % (AUTO) 7.5 %; NEUTROPHILS # (AUTO) 3.8 10^3/uL (1.5-6.6); NEUTROPHILS % (AUTO) 51.6 %; PLT - PLATELET COUNT 253 10^3/uL (130-450); RED BLOOD COUNT 4.53 10^6/uL (4.20-5.40); RED CELL DISTRIBUTION WIDTH 13.5 % (12.0-15.0); WHITE BLOOD COUNT 7.3 x10^3/uL (4.8-10.8)
== END 2018-05-27 10:29 | disposition home or self-care (01) ==
LOC: LAB.F 10:28
PROVIDERS: ATTEND Registered Nurse
DX: N92.0 Excessive and frequent menstruation with regular cycle (principal)
CPT/HCPCS: 36415; 84702; 85025

== ENCOUNTER 2018-06-03 11:57 | Emergency (ER) | payer MEDICAID, OTHER ==
[2018-06-03 12:09] VITALS: BP 124/82
[2018-06-03] MEDS ORDERED: NAPROXEN 250 MG TABLET PO STA (13:21)
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
== END 2018-06-03 13:38 | disposition home or self-care (01) ==
LOC: ED 11:57
DX: S16.1XXA Strain of muscle, fascia and tendon at neck level, initial encounter (principal); V89.2XXA Person injured in unspecified motor-vehicle accident, traffic, initial encounter; F17.200 Nicotine dependence, unspecified, uncomplicated
CPT/HCPCS: 99283; A9270

== ENCOUNTER 2018-07-28 14:37 | Emergency (ER) | payer MEDICAID, OTHER ==
--- NOTE | 2018-07-28 14:46 | ED Physician Documentation ---
PD HPI URI - Stated complaint Stated Complaint: BILAT EAR PAIN/SORE THROAT - Chief complaint Chief Complaint: Heent - History obtained from History obtained from: Patient - History of Present Illness Timing - onset: How many weeks ago (1) Timing duration: Weeks (1) Timing details: Gradual onset Associated symptoms: Chills, Ear pain (right ear for 1-2 days), Nasal congestion, Sinus pain, Sore throat (1 week), Dry cough. No: Fever Contributing factors: No: Sick contact, Travel Recently seen: Not recently seen Review of Systems Constitutional: reports: Chills, Myalgias. denies: Fever Ears: reports: Ear pain Nose: reports: Congestion, Sinus pressure / pain. denies: Rhinorrhea / runny nose Throat: reports: Sore throat. denies: Oral lesions / sores Respiratory: reports: Cough. 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 : None HEENT: Other Psych: Claustrophobia Musculoskeletal: Osteoarthritis Derm: None - Past Surgical History Past Surgical History: Yes Ortho: Arthroscopic surgery, Carpal Tunnel surgery - Present Medications Home Medications: Ambulatory Orders Medication Instructions Recorded Confirmed Albuterol Sulfate [Proair Hfa] 8.5 gm IH TID PRN 11/27/12 07/28/18 Montelukast Sodium [Singulair] 10 mg PO DAILY 09/07/14 07/28/18 Tiotropium [place] [Spiriva] 2 puffs IN DAILY 12/30/14 07/28/18 guaiFENesin/DEXTROMETHORPHAN 10 ml PO Q6H PRN #120 ml 03/23/18 07/28/18 [Robitussin Dm] Cephalexin [Keflex] 500 mg PO TID #20 capsule 07/28/18 Cetirizine [ZyrTEC] 10 mg PO DAILY #15 tablet 07/28/18 Dexamethasone [Decadron] 4 mg PO DAILY #5 tablet 07/28/18 Hydrocodone/Acetaminophen [[place] 1 each PO Q6H PRN #12 tablet 07/28/18 5-325 Tablet] - Allergies Allergies/Adverse Reactions: Allergies Allergy/AdvReac Type Severity Reaction Status Date / Time Penicillins Allergy Unknown Unknown Verified 07/28/18 14:41 Band-aids AdvReac Intermediate Rash Uncoded 07/28/18 14:41 - Social History Does the pt smoke?: Yes Smoking Status: Current every day smoker Does the pt drink ETOH?: No Does the pt have substance abuse?: No - Immunizations Immunizations are current?: Yes - POLST Patient has POLST: No PD ED PE NORMAL - Vitals Vital signs reviewed: Yes - General General: Alert and oriented X 3, No acute distress, Well developed/nourished - HEENT HEENT: No: Pharynx benign (Some mild tonsillar swelling bilaterally with white spotty exudate. There is minimal bilateral anterior adenopathy. The left ear appears normal. The right eardrum is pressured with fluid and moderate redness. She does have a cough with some congested sound but there is no wheezing on auscultation.) - Neck Neck: Supple, no meningeal sign - Cardiac Cardiac: RRR, No murmur - Respiratory Respiratory: Clear bilaterally - Derm Derm: Normal color, Warm and dry Results - Vitals Vitals: Vital Signs - 24 hr 07/28/18 14:39 Temperature 35.9 C L Heart Rate 85 Respiratory 14 Rate Blood Pressure 131/77 H O2 Saturation 97 Oxygen O2 Source Room air PD MEDICAL DECISION MAKING - ED course Complexity details: considered differential, d/w patient Departure - Departure Disposition: 01 Home, Self Care Clinical Impression: Otitis media Qualifiers: Otitis media type: suppurative Chronicity: acute Laterality: right Recurrence: non-recurrent Spontaneous tympanic membrane rupture: without spontaneous rupture Qualified Code(s): H66.001 - Acute suppurative otitis media without spontaneous rupture of ear drum, right ear Upper respiratory infection Qualifiers: URI type: unspecified URI Qualified Code(s): J06.9 - Acute upper respiratory infection, unspecified Condition: Stable Record reviewed to determine appropriate education?: Yes Instructions: ED Otitis Media Acute Adult Follow-Up: Juany Pena ARNP [Primary Care Provider] - Prescriptions: Cephalexin [Keflex] 500 mg PO TID #20 capsule Cetirizine [ZyrTEC] 10 mg PO DAILY #15 tablet Dexamethasone [Decadron] 4 mg PO DAILY #5 tablet Hydrocodone/Acetaminophen [[place] 5-325 Tablet] 1 each PO Q6H PRN #12 tablet PRN Reason: Pain Comments: Stay well-hydrated. Tylenol or ibuprofen if needed for pains. Cephalexin 3 times a day for a week for the infection. Decadron steroid for inflammation will decrease the pain and promote better drainage in the sinuses and ear. Cetirizine antihistamine daily for the next week or 2. Recheck if not improving over the next few days.
[2018-07-28] MEDS ORDERED: cephALEXin 250 MG CAPSULE PO STA (14:54)
[2018-07-28] MEDS ORDERED: CHERRY SYRUP 10 ML UDC PO ONE (14:54)
[2018-07-28] MEDS ORDERED: CETIRIZINE 10 MG TABLET PO STA (14:54)
[2018-07-28] MEDS ORDERED: ACETAMINOPHEN 325 MG TABLET PO STA (14:54)
[2018-07-28] MEDS ORDERED: DEXAMETHASONE 10 MG/ML VIAL PO STA (14:54)
[2018-07-28 15:25] VITALS: BP 113/71
== END 2018-07-28 15:35 | disposition home or self-care (01) ==
LOC: ED 14:37
DX: H66.001 Acute suppurative otitis media without spontaneous rupture of ear drum, right ear (principal); J06.9 Acute upper respiratory infection, unspecified; J45.909 Unspecified asthma, uncomplicated; F17.200 Nicotine dependence, unspecified, uncomplicated
CPT/HCPCS: 87070; 87430; 99283; A9270

== ENCOUNTER 2018-10-25 08:37 | Emergency (ER) | payer MEDICAID ==
[2018-10-25] MEDS ORDERED: DEXAMETHASONE 10 MG/ML VIAL PO STA (09:35)
[2018-10-25] MEDS ORDERED: CHERRY SYRUP 10 ML UDC PO ONE (09:35)
[2018-10-25] MEDS ORDERED: KETOROLAC 60 MG/2 ML VIAL IM STA (09:36)
--- NOTE | 2018-10-25 10:42 | XRAY Report ---
Reason: locked knee medial pain Procedure Date: 10/25/2018 Accession Number: [id number] / [id number] Procedure: XR - Knee 4 View RT CPT Code: FULL RESULT: EXAM: RIGHT KNEE RADIOGRAPHY EXAM DATE: 10/25/2018 10:12 AM. CLINICAL HISTORY: Locked knee, medial pain. COMPARISON: Right knee radiographs from 09/07/2014. TECHNIQUE: 4 views. FINDINGS: Bones: There appears to be an osseous defect in the medial aspect of the femoral metadiaphysis, suggesting sequela of previous surgery. No acute fracture is demonstrated. Corticated osseous structure is demonstrated adjacent to the medial femoral condyle, suggesting sequela of previous injury. There is irregularity of the medial aspect of the patella, present previous. Joints: No dislocation. Suggestion of lateral patellar positioning, similar to the prior examination. No significant joint space narrowing; however, this is not well assessed without weightbearing. There is slight spurring of the medial and lateral compartments. A small joint effusion is present. Soft Tissues: Unremarkable. IMPRESSION: 1. No acute fracture. 2. Possible lateral subluxation of the patella, similar to the prior examination. If indicated, this could be further evaluated with sunrise or merchant view. 3. Small joint effusion. 4. Findings suggesting minimal DJD of the medial and lateral compartments. RADIA
--- NOTE | 2018-10-25 11:12 | ED Physician Documentation ---
PD HPI LOWER EXT INJURY - Stated complaint Stated Complaint: KNEE STIFF/CANT STRAIGHTEN IT - Chief complaint Chief Complaint: Ext Problem - History obtained from History obtained from: Patient - History of Present Illness PD HPI LOW EXT INJURY LOCATION: Right, Knee Type of injury: Other (while sleeping) Where injury occurred: Home Timing - onset: Last night Timing - duration: Hours Timing - details: Abrupt onset, Still present Improved by: Rest Worsened by: Moving, Palpating Associated symptoms: No: Weakness, Numbness, Tingling Contributing factors: No: Anticoagulated Similar symptoms before: Has not had sx before Recently seen: Not recently seen - Additional information Additional information: 28-year-old female who is had a problem with the right patella subluxing has awoken this morning with her right knee flexed and she is unable to straighten it. 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 : None HEENT: Other Psych: Claustrophobia Musculoskeletal: Osteoarthritis Derm: None - Past Surgical History Past Surgical History: Yes Ortho: Arthroscopic surgery, Carpal Tunnel surgery - Present Medications Home Medications: Ambulatory Orders Medication Instructions Recorded Confirmed Albuterol Sulfate [Proair Hfa] 8.5 gm IH TID PRN 11/27/12 07/28/18 Montelukast Sodium [Singulair] 10 mg PO DAILY 09/07/14 07/28/18 Tiotropium [place] [Spiriva] 2 puffs IN DAILY 12/30/14 07/28/18 - Allergies Allergies/Adverse Reactions: Allergies Allergy/AdvReac Type Severity Reaction Status Date / Time Penicillins Allergy Unknown Unknown Verified 10/25/18 08:43 Band-aids AdvReac Intermediate Rash Uncoded 10/25/18 08:43 - Social History Does the pt smoke?: Yes Smoking Status: Current every day smoker Does the pt drink ETOH?: No Does the pt have substance abuse?: No - Immunizations Immunizations are current?: Yes - POLST Patient has POLST: No PD ED PE NORMAL - Vitals Vital signs reviewed: Yes (tachy and hypertensive ) - General General: Alert and oriented X 3, No acute distress, Well developed/nourished - HEENT HEENT: Atraumatic, PERRL, EOMI - Respiratory Respiratory: No respiratory distress - Derm Derm: Normal color, Warm and dry, No rash - Extremities Extremities: Other (The right knee is flexed and painfult to touch. There is swelling present. The distal n/v is intact. 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 No acute fracture. 2 Possible lateral subluxation of the patella, similar to prior examination. If indicated, this could be further evaluate the sunrise or merchant view. 3 Small joint effusion.4 Findings suggesting minimal DJD of the medial and lateral compartments), EMP read indepedently, See rad report PD MEDICAL DECISION MAKING - ED course Complexity details: reviewed old records, reviewed results, re-evaluated patient, considered differential, d/w patient ED course: 28-year-old female with arthritis in the right knee has had 2 previous procedures procedures on the knee she awoke in the middle the night with her knee locked she is come into the emergency department with poor range of motion to the knee and associated pain. She is administered dexamethasone and Toradol and when her x-rays are back hernias run through a range of motion with traction we are able to get full range of motion with traction there is still pain associated with that and there is a joint effusion. She is placed onto crutches and will refer back to orthopedics. We will give her a note for work for 3 days. Departure - Departure Disposition: 01 Home, Self Care Clinical Impression: Internal derangement of knee Condition: Stable Instructions: ED Meniscal Injury Knee Poss Follow-Up: Juany Pena ARNP [Primary Care Provider] - Forms: Activity restrictions Discharge Date/Time: 10/25/18 12:05
[2018-10-25 12:06] VITALS: BP 118/65
== END 2018-10-25 12:05 | disposition home or self-care (01) ==
LOC: ED 08:37
DX: M23.91 Unspecified internal derangement of right knee (principal); M17.11 Unilateral primary osteoarthritis, right knee; M25.461 Effusion, right knee; F17.200 Nicotine dependence, unspecified, uncomplicated
CPT/HCPCS: 73564; 96372; 99283; 99284; A9270

== ENCOUNTER 2018-11-10 11:07 | Emergency (ER) | payer MEDICAID ==
[2018-11-10 11:29] LABS: BASOPHILS # (AUTO) 0.1 10^3/uL (0.0-0.1); BASOPHILS % (AUTO) 0.7 %; EOSINOPHILS # (AUTO) 0.7 10^3/uL (0.0-0.7); EOSINOPHILS % (AUTO) 8.1 %; HGB - HEMOGLOBIN 13.6 g/dL (12.0-16.0); LYMPHOCYTES # (AUTO) 2.4 10^3/uL (1.5-3.5); LYMPHOCYTES % (AUTO) 26.8 %; MEAN CORPUSCULAR HEMOGLOBIN 31.9 pg (27.0-31.0); MEAN CORPUSCULAR HGB CONC 33.7 g/dL (32.0-36.0); MEAN CORPUSCULAR VOLUME 94.6 fL (81.0-99.0); MEAN PLATELET VOLUME 9.6 fL (7.9-10.8); MONOCYTES # (AUTO) 0.6 10^3/uL (0.0-1.0); MONOCYTES % (AUTO) 6.4 %; NEUTROPHILS # (AUTO) 5.2 10^3/uL (1.5-6.6); NEUTROPHILS % (AUTO) 57.9 %; PLT - PLATELET COUNT 252 10^3/uL (130-450); RED BLOOD COUNT 4.26 10^6/uL (4.20-5.40); RED CELL DISTRIBUTION WIDTH 12.5 % (12.0-15.0)
[2018-11-10 11:30] LABS: BILIRUBIN,URINE NEGATIVE (NEGATIVE); GLUCOSE, URINE (UA) NEGATIVE (NEGATIVE); KETONES,URINE (UA) NEGATIVE (NEGATIVE); LEUKOCYTE ESTERASE, URINE NEGATIVE (NEGATIVE); NITRITE,URINE NEGATIVE (NEGATIVE); OCCULT BLOOD,URINE NEGATIVE (NEGATIVE); PH,URINE 5.5 PH (5.0-7.5); PROTEIN,URINE NEGATIVE (NEGATIVE); UROBILINOGEN,URINE 0.2 (NORMAL) E.U./dL (NORMAL)
[2018-11-10 11:31] LABS: CLARITY,URINE HAZY (CLEAR)
[2018-11-10 11:32] LABS: HCG UR QUAL NEGATIVE
[2018-11-10 11:45] LABS: RBC,URINE None Seen /HPF (0-5); SQUAMOUS EPITHELIAL CELL,UR MANY Squamous (<= Few)
[2018-11-10 11:46] LABS: BACTERIA,URINE Moderate /HPF (None Seen)
[2018-11-10] MEDS ORDERED: LIDOCAINE VISCOUS 2% 15 ML UDC MM STA (12:57)
[2018-11-10] MEDS ORDERED: SUCRALFATE 1 GM/10 ML UDC PO STA (12:57)
[2018-11-10] MEDS ORDERED: MAG HYDROX/AL HYDROX/SIMETH 30 ML UDC PO STA (12:57)
[2018-11-10] MEDS ORDERED: FAMOTIDINE 20 MG TABLET PO STA (12:57)
[2018-11-10] MEDS ORDERED: PHENobarb/HYOSCY/ATROPINE/SCOP 5 ML SYRINGE PO STA (12:57)
[2018-11-10] MEDS ORDERED: ONDANSETRON ODT 4 MG TABLET TL STA (12:58)
--- NOTE | 2018-11-10 13:01 | ED Physician Documentation ---
PD HPI ABD PAIN - Stated complaint Stated Complaint: ABD PX - Chief complaint Chief Complaint: Abd Pain - History obtained from History obtained from: Patient - History of Present Illness Timing - onset: How many days ago (3) Timing - duration: Days (3) Timing - details: Gradual onset Pain level max: 8 Pain level now: 6 Quality: Aching, Dull, Pain Location: Epigastric Radiation: No: Chest, , Lower back, Left flank, Left shoulder, Right flank, Right shoulder, Upper back Improved by: Other (nothing) Worsened by: Eating Associated symptoms: Nausea. No: Vomiting, Hematemesis, Diarrhea, Constipation, Melena, Hematochezia, Dysuria, Hematuria, Chest pain Similar symptoms before: Diagnosis (had ulcers in the past) - Additional information Additional information: has been taking ibuprofen and "took a few shots" of alcohol on friday night. Review of Systems Constitutional: denies: Fever, Chills Respiratory: denies: Cough GI: reports: Nausea. 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 11/10/18 Famotidine [Pepcid] 20 mg PO BID #30 tablet 11/10/18 Sucralfate [Carafate] 1 gm PO ACHS #90 tablet 11/10/18 - Allergies Allergies/Adverse Reactions: Allergies Allergy/AdvReac Type Severity Reaction Status Date / Time Penicillins Allergy Unknown Unknown Verified 11/10/18 11:11 Band-aids AdvReac Intermediate Rash Uncoded 11/10/18 11:11 - Social History Does the pt smoke?: Yes Smoking Status: Current every day smoker Does the pt drink ETOH?: No Does the pt have substance abuse?: No - Immunizations Immunizations are current?: Yes - POLST Patient has POLST: No PD ED PE NORMAL - Vitals Vital signs reviewed: Yes - General General: Alert and oriented X 3, No acute distress, Well developed/nourished - HEENT HEENT: PERRL, Moist mucous membranes - Neck Neck: Supple, no meningeal sign - Cardiac Cardiac: RRR, Strong equal pulses - Respiratory Respiratory: No respiratory distress, Clear bilaterally - Abdomen Abdomen: Normal bowel sounds, Soft, Non tender, Non distended, No organomegaly - Derm Derm: Warm and dry - Extremities Extremities: No calf tenderness / cord - Neuro Neuro: Alert and oriented X 3 - Psych Psych: Normal mood, Normal affect Results - Vitals Vitals: Vital Signs - 24 hr 11/10/18 11/10/18 11/10/18 11:09 12:30 14:20 Temperature 36.5 C 36.6 C Heart Rate 83 63 59 L Respiratory 19 18 18 Rate Blood Pressure 123/78 113/78 118/78 O2 Saturation 98 100 100 Oxygen O2 Source Room air - Labs Labs: Laboratory Tests 11/10/18 11/10/18 11/10/18 11:16 11:16 11:25 WBC 9.0 RBC 4.26 Hgb 13.6 Hct 40.3 MCV 94.6 MCH 31.9 H MCHC 33.7 RDW 12.5 Plt Count 252 MPV 9.6 Neut # (Auto) 5.2 Lymph # (Auto) 2.4 [place] # (Auto) 0.6 Eos # (Auto) 0.7 Baso # (Auto) 0.1 Absolute Nucleated RBC 0.00 Nucleated RBC % 0.0 Sodium Potassium Chloride Carbon Dioxide Anion Gap BUN Creatinine Estimated GFR (MDRD) Glucose Calcium Total Bilirubin AST ALT Alkaline Phosphatase Total Protein Albumin Globulin Albumin/Globulin Ratio Lipase Urine Color YELLOW Urine Clarity HAZY Urine pH 5.5 Ur Specific [place] >=1.030 H >=1.030 H Urine Protein NEGATIVE Urine Glucose (UA) NEGATIVE Urine Ketones NEGATIVE Urine Occult Blood NEGATIVE Urine Nitrite NEGATIVE Urine Bilirubin NEGATIVE Urine Urobilinogen 0.2 (NORMAL) Ur Leukocyte Esterase NEGATIVE Urine RBC None Seen Urine WBC 0-3 Ur Squamous Epith Cells MANY Squamous H Urine Bacteria Moderate H Ur Microscopic Review INDICATED Urine Culture Comments NOT INDICATED Urine HCG, Qual NEGATIVE 11/10/18 11:25 WBC RBC Hgb Hct MCV MCH MCHC RDW Plt Count MPV Neut # (Auto) Lymph # (Auto) [place] # (Auto) Eos # (Auto) Baso # (Auto) Absolute Nucleated RBC Nucleated RBC % Sodium 139 Potassium 4.0 Chloride 109 Carbon Dioxide 22 Anion Gap 8.0 BUN 11 Creatinine 0.5 Estimated GFR (MDRD) 146 Glucose 117 H Calcium 9.2 Total Bilirubin 0.4 AST 15 ALT 14 Alkaline Phosphatase 57 Total Protein 6.9 Albumin 4.1 Globulin 2.8 Albumin/Globulin Ratio 1.5 Lipase 25 Urine Color Urine Clarity Urine pH Ur Specific [place] Urine Protein Urine Glucose (UA) Urine Ketones Urine Occult Blood Urine Nitrite Urine Bilirubin Urine Urobilinogen Ur Leukocyte Esterase Urine RBC Urine WBC Ur Squamous Epith Cells Urine Bacteria Ur Microscopic Review Urine Culture Comments Urine HCG, Qual PD MEDICAL DECISION MAKING - ED course Complexity details: reviewed results, re-evaluated patient, considered diff erential, d/w patient ED course: Symptoms nearly fully resolved with GI cocktail. She is well-appearing, nontoxic. Afebrile. Symptoms are consistent with gastritis versus ulcer. We will place her on a PPI, H2 stevo and Carafate for home. Patient counseled regarding signs and symptoms for which I believe and urgent re-evaluation would be necessary. Patient with good understanding of and agreement to plan and is comfortable going home at this time This document was made in part using voice recognition software. While efforts are made to proofread this document, sound alike and grammatical errors may occur. Departure - Departure Disposition: Home, Self Care Clinical Impression: Gastritis Qualifiers: Gastritis type: unspecified gastritis Chronicity: acute Gastritis bleeding: without bleeding Qualified Code(s): K29.00 - Acute gastritis without bleeding Condition: Good Instructions: ED PUD Vs Gastritis Follow-Up: Juany Pena ARNP [Primary Care Provider] - Within 1 week Prescriptions: Esomeprazole Magnesium [Nexium] 40 mg PO DAILY #30 capsule. Famotidine [Pepcid] 20 mg PO BID #30 tablet Sucralfate [Carafate] 1 gm PO ACHS #90 tablet Comments: Use the medications as prescribed. Return if you worsen. Follow-up with your doctor for further care. Avoid spicy foods, fried foods, caffeine, alcohol, anti-inflammatory drugs such as Aleve and Motrin. This may take several weeks to heal. Discharge Date/Time: 11/10/18 14:35
[2018-11-10 13:17] LABS: ALBUMIN 4.1 g/dL (3.2-5.5); ALBUMIN/GLOBULIN RATIO 1.5 (1.0-2.2); BILIRUBIN,TOTAL 0.4 mg/dL (0.2-1.0); CALCIUM 9.2 mg/dL (8.5-10.3); CREATININE 0.5 mg/dL (0.4-1.0); TOTAL PROTEIN 6.9 g/dL (6.7-8.2)
[2018-11-10 14:20] VITALS: BP 118/78
== END 2018-11-10 14:35 | disposition home or self-care (01) ==
LOC: ED 11:07
DX: K29.00 Acute gastritis without bleeding (principal); F17.200 Nicotine dependence, unspecified, uncomplicated
CPT/HCPCS: 36415; 80053; 81001; 81025; 83690; 85025; 99283; 99284; A9270; Q0162; 81003; 87086

== ENCOUNTER 2019-02-21 18:45 | Emergency (ER) | payer MEDICAID ==
[2019-02-21] MEDS ORDERED: IPRATROPIUM/ALBUTEROL 3 ML NEB INH STA (18:51)
[2019-02-21] MEDS ORDERED: predniSONE 20 MG TABLET PO STA (19:34)
[2019-02-21] MEDS ORDERED: BENZONATATE 100 MG CAPSULE PO STA (19:34)
--- NOTE | 2019-02-21 20:26 | XRAY Report ---
Reason: cough Procedure Date: 02/21/2019 Accession Number: [id number] / [id number] Procedure: XR - Chest 2 View X-Ray CPT Code: 36106 Final Report FULL RESULT: EXAM: CHEST RADIOGRAPHY EXAM DATE: 02/21/2019 07:39 PM. CLINICAL HISTORY: Cough. COMPARISON: CHEST 2 VIEW PA/LAT 04/30/2016 4:34 PM. TECHNIQUE: 2 views. FINDINGS: Lungs/Pleura: No focal opacities evident. No pleural effusion. No pneumothorax. Normal volumes. Mediastinum: Heart and mediastinal contours are unremarkable. Other: None. IMPRESSION: No acute intrathoracic plain film abnormality. RADIA
--- NOTE | 2019-02-21 20:44 | ED Physician Documentation ---
PD HPI URI - Stated complaint Stated Complaint: CONGESTION/COUGH - Chief complaint Chief Complaint: Resp - History obtained from History obtained from: Patient - History of Present Illness Pain level max: 5 Pain level now: 4 Associated symptoms: Chills, Nasal congestion, Rhinorrhea, Dry cough, Dyspnea (wheezing). No: Fever Contributing factors: Sick contact - Additional information Additional information: 29-year-old female presents to the emergency department with coughing for the past 2 weeks. She states that her son has been sick with same. Saw her doctor and was placed on antibiotics, but is not better. She has an inhaler at home as well. She does smoke. No fevers. She is not , breast-feeding or trying to become . Worse with exertion and taking a deep breath. Better with her inhaler. Review of Systems Constitutional: denies: Fever GI: denies: Vomiting, Diarrhea : denies: Now EGA Skin: denies: Rash Musculoskeletal: denies: Neck pain, Back pain Neurologic: denies: Headache PD PAST MEDICAL HISTORY - Past Medical History Cardiovascular: None Respiratory: Asthma Neuro: None Endocrine/Autoimmune: None GI: None PROGRAM OFFICER: None : None HEENT: Other Psych: Claustrophobia Musculoskeletal: Osteoarthritis Derm: None - Past Surgical History Past Surgical History: Yes Ortho: Arthroscopic surgery, Carpal Tunnel surgery /PROGRAM OFFICER: section - Present Medications Home Medications: Ambulatory Orders Medication Instructions Recorded Confirmed Albuterol Sulfate [Proair Hfa] 8.5 gm IH TID PRN 11/27/12 07/28/18 Montelukast Sodium [Singulair] 10 mg PO DAILY 09/07/14 07/28/18 Tiotropium [place] [Spiriva] 2 puffs IN DAILY 12/30/14 07/28/18 Esomeprazole Magnesium [Nexium] 40 mg PO DAILY #30 capsule. 11/10/18 Famotidine [Pepcid] 20 mg PO BID #30 tablet 11/10/18 Sucralfate [Carafate] 1 gm PO ACHS #90 tablet 11/10/18 Benzonatate [Tessalon Perle] 100 - 200 mg PO TID PRN #30 capsule 02/21/19 predniSONE [Deltasone] 10 mg PO [id number] #42 tab 02/21/19 - Allergies Allergies/Adverse Reactions: Allergies Allergy/AdvReac Type Severity Reaction Status Date / Time Penicillins Allergy Unknown Unknown Verified 11/10/18 11:11 Band-aids AdvReac Intermediate Rash Uncoded 11/10/18 11:11 - Social History Does the pt smoke?: Yes Smoking Status: Current every day smoker Does the pt drink ETOH?: No Does the pt have substance abuse?: No - Immunizations Immunizations are current?: Yes - POLST Patient has POLST: No PD ED PE NORMAL - Vitals Vital signs reviewed: Yes - General General: Alert and oriented X 3, No acute distress, Well developed/nourished - HEENT HEENT: Moist mucous membranes, Pharynx benign - Neck Neck: Supple, no meningeal sign - Cardiac Cardiac: RRR, Strong equal pulses - Respiratory Respiratory: No respiratory distress, Other (Wheezing bilaterally) - Abdomen Abdomen: Soft, Non tender, Non distended - Derm Derm: Warm and dry - Extremities Extremities: No edema - Neuro Neuro: Alert and oriented X 3 - Psych Psych: Normal mood, Normal affect Results - Vitals Vitals: Vital Signs - 24 hr 02/21/19 02/21/19 02/21/19 18:47 19:00 20:08 Temperature 36.2 C L 37.1 C Heart Rate 103 H 93 82 Respiratory 28 H 20 16 Rate Blood Pressure 151/72 H 111/75 O2 Saturation 97 98 02/21/19 20:43 Temperature Heart Rate 77 Respiratory 18 Rate Blood Pressure 111/78 O2 Saturation 97 Oxygen O2 Source Room air - Rads (name of study) Chest x-ray Radiology: Prelim report reviewed, EMP read contemporaneously, See rad report (No acute intrathoracic plain film abnormality. ) PD MEDICAL DECISION MAKING - ED course Complexity details: reviewed results, re-evaluated patient, considered differential, d/w patient ED course: Patient presents to the emergency department what appears to be a viral upper respiratory infection. She is very well-appearing, nontoxic. Afebrile. Feels better after nebulizer treatment here. Will place on a steroid taper as well. Patient counseled regarding signs and symptoms for which I believe and urgent re-evaluation would be necessary. Patient with good understanding of and agreement to plan and is comfortable going home at this time This document was made in part using voice recognition software. While efforts are made to proofread this document, sound alike and grammatical errors may occur. Departure - Departure Disposition: 01 Home, Self Care Clinical Impression: Viral URI with cough Condition: Good Instructions: ED URI Viral Follow-Up: Juany Pena ARNP [Primary Care Provider] - Within 1 week Prescriptions: Benzonatate [Tessalon Perle] 100 - 200 mg PO TID PRN #30 capsule PRN Reason: Cough predniSONE [Deltasone] 10 mg PO [id number] #42 tab Comments: Return if you worsen. Continue your inhaler at home. This should improve in the next week or two. Discharge Date/Time: 02/21/19 20:54
[2019-02-21 20:45] VITALS: BP 111/78
== END 2019-02-21 20:54 | disposition home or self-care (01) ==
LOC: ED 18:45
DX: J06.9 Acute upper respiratory infection, unspecified (principal); J45.909 Unspecified asthma, uncomplicated; F17.200 Nicotine dependence, unspecified, uncomplicated
CPT/HCPCS: 71046; 94640; 99283; 99284; A9270; J7512

== ENCOUNTER 2019-07-09 10:42 | Emergency (ER) | payer MEDICAID ==
--- NOTE | 2019-07-09 10:59 | ED Physician Documentation ---
PD HPI DYSPNEA - Stated complaint Stated Complaint: SOA,COUGH - History obtained from History obtained from: Patient - History of Present Illness Timing - onset: How many days ago (5) Timing - onset during: Rest Timing - duration: Days (5) Timing - details: Gradual onset, Still present Inciting event(s): URI Improved by: Inhaler/neb Worsened by: Coughing Associated symptoms: Cough, Wheezing. 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 She has not had fever with this she has had cough and shortness of breath. Review of Systems Constitutional: reports: Fatigue. denies: Fever, Chills Eyes: denies: Decreased vision Ears: denies: Ear pain Nose: reports: Rhinorrhea / runny nose Throat: reports: Sore throat Cardiac: denies: Chest pain / pressure, Palpitations Respiratory: reports: Dyspnea, Cough, Wheezing GI: denies: Abdominal Pain, Nausea, Vomiting : denies: Dysuria PD PAST MEDICAL HISTORY - Past Medical History Cardiovascular: None Respiratory: Asthma Neuro: None Endocrine/Autoimmune: None GI: None CONFERENCE CENTER COORDINATOR: None : None HEENT: Other Psych: Claustrophobia Musculoskeletal: Osteoarthritis Derm: None - Past Surgical History Past Surgical History: Yes Ortho: Arthroscopic surgery, Carpal Tunnel surgery /CONFERENCE CENTER COORDINATOR: section - Present Medications Home Medications: Ambulatory Orders Medication Instructions Recorded Confirmed Albuterol Sulfate [Proair Hfa] 8.5 gm IH TID PRN 11/27/12 07/28/18 Montelukast Sodium [Singulair] 10 mg PO DAILY 09/07/14 07/28/18 Tiotropium [place] [Spiriva] 2 puffs IN DAILY 12/30/14 07/28/18 Esomeprazole Magnesium [Nexium] 40 mg PO DAILY #30 capsule. 11/10/18 Famotidine [Pepcid] 20 mg PO BID #30 tablet 11/10/18 Sucralfate [Carafate] 1 gm PO ACHS #90 tablet 11/10/18 Benzonatate [Tessalon Perle] 100 - 200 mg PO TID PRN #30 capsule 02/21/19 predniSONE [Deltasone] 10 mg PO [id number] #42 tab 02/21/19 Albuterol Sulf [Ventolin Hfa 1 - 2 puffs INH Q4HR PRN #1 inhaler 07/09/19 Inhaler] Azithromycin [Zithromax] 250 mg PO DAILY #6 tablet 07/09/19 predniSONE [Deltasone] 10 mg PO ONCE #26 tablet 07/09/19 - Allergies Allergies/Adverse Reactions: Allergies Allergy/AdvReac Type Severity Reaction Status Date / Time Penicillins Allergy Unknown Unknown Verified 07/09/19 11:03 Band-aids AdvReac Intermediate Rash Uncoded 11/10/18 11:11 - Social History Does the pt smoke?: Yes Smoking Status: Current every day smoker Does the pt drink ETOH?: No Does the pt have substance abuse?: No - Immunizations Immunizations are current?: Yes - POLST Patient has POLST: No PD ED PE NORMAL - Vitals Vital signs reviewed: Yes (hypertensive ) - General General: Alert and oriented X 3, No acute distress, Well developed/nourished - HEENT HEENT: Atraumatic, PERRL, EOMI, Other (both TM's are inflamed but with intact landmarks the pharynx is with generalized erythema and swelling with exudate on the right ) - Neck Neck: Supple, no meningeal sign, No bony TTP - Cardiac Cardiac: RRR, No murmur - Respiratory Respiratory: No respiratory distress, Other (diminished breath sounds. ) - Abdomen Abdomen: Soft, Non tender - Back Back: No CVA TTP, No spinal TTP - Derm Derm: Normal color, Warm and dry, No rash - Extremities Extremities: No deformity, No edema, No calf tenderness / cord - Neuro Neuro: Alert and oriented X 3, documentation billing clerk 2-12 intact, No motor deficit, No sensory deficit, Normal speech Eye Opening: Spontaneous Motor: Obeys Commands Verbal: Oriented GCS Score: 15 - Psych Psych: Normal mood, Normal affect Results - Vitals Vitals: Vital Signs - 24 hr 07/09/19 07/09/19 07/09/19 10:46 11:03 12:19 Temperature 36.5 C 36.7 C Heart Rate 96 86 85 Respiratory 24 16 16 Rate Blood Pressure 148/100 H 124/74 112/72 O2 Saturation 98 100 100 Oxygen O2 Source Room air - Rads (name of study) chest Radiology: Prelim report reviewed (Impression: No acute cardiopulmonary abnormality. No focal pulmonary consolidation.), EMP read indepedently, See rad report PD MEDICAL DECISION MAKING - ED course Complexity details: reviewed old records, reviewed results, re-evaluated patient, considered differential, d/w patient ED course: 29-year-old female with a history of asthma has a worse exacerbation than usual. She is not hypoxic with this. She does work at [employer] she has been tested 4 weeks ago for coronavirus she continues to work at [employer]. She is not getting the usual relief that she gets with her inhaler and we have provided her with some dexamethasone today we will place her on a course of a azithromycin for otitis and a course of prednisone. We will retest for coronavirus today. Departure - Departure Disposition: 01 Home, Self Care Clinical Impression: Otitis media Qualifiers: Otitis media type: suppurative Chronicity: acute Laterality: bilateral Recurrence: non-recurrent Spontaneous tympanic membrane rupture: without spontaneous rupture Qualified Code(s): H66.003 - Acute suppurative otitis media without spontaneous rupture of ear drum, bilateral Asthma exacerbation Qualifiers: Asthma severity: mild Asthma persistence: intermittent Qualified Code(s): J45.21 - Mild intermittent asthma with (acute) exacerbation Condition: Stable Instructions: ED Bronchitis Asthmatic, ED Otitis Media Acute Adult Follow-Up: Ciaran August PA-C [Primary Care Provider] - Prescriptions: Albuterol Sulf [Ventolin Hfa Inhaler] 1 - 2 puffs INH Q4HR PRN #1 inhaler PRN Reason: Shortness Of Air/Wheezing Azithromycin [Zithromax] 250 mg PO DAILY #6 tablet predniSONE [Deltasone] 10 mg PO ONCE #26 tablet Discharge Date/Time: 07/09/19 12:20
--- NOTE | 2019-07-09 11:38 | XRAY Report ---
Reason: cough soa Procedure Date: 07/09/2019 Accession Number: [id number] / [id number] Procedure: XR - Chest 1 View X-Ray CPT Code: 98854 Final Report FULL RESULT: EXAM: CHEST RADIOGRAPHY EXAM DATE: 07/09/2019 11:27 AM. CLINICAL HISTORY: Cough, shortness of breath. COMPARISON: CHEST 2 VIEW 02/21/2019 7:39 PM CHEST 2 VIEW PA/LAT 03/24/2016 11:26 AM. TECHNIQUE: 1 view. FINDINGS: Lungs/Pleura: No focal opacities evident. No pleural effusion. No pneumothorax. Mediastinum: Within exam limitations, the cardiomediastinal contour is normal. Other: No acute osseous abnormality. IMPRESSION: No acute cardiopulmonary abnormality. No focal pulmonary consolidation. RADIA
[2019-07-09] MEDS ORDERED: DEXAMETHASONE 10 MG/ML VIAL PO STA (11:50)
[2019-07-09] MEDS ORDERED: CHERRY SYRUP 10 ML UDC PO ONE (11:50)
[2019-07-09 12:20] VITALS: BP 112/72
== END 2019-07-09 12:20 | disposition home or self-care (01) ==
LOC: ED 10:42
DX: H66.003 Acute suppurative otitis media without spontaneous rupture of ear drum, bilateral (principal); J45.21 Mild intermittent asthma with (acute) exacerbation; F17.200 Nicotine dependence, unspecified, uncomplicated
CPT/HCPCS: 71045; 87635; 99284; A9270; 81599

== ENCOUNTER 2019-12-08 10:28 | Outpatient (CLI) | payer MEDICAID ==
[2019-12-08 10:45] LABS: BASOPHILS # (AUTO) 0.1 10^3/uL (0.0-0.1); BASOPHILS % (AUTO) 0.9 %; EOSINOPHILS # (AUTO) 0.8 10^3/uL (0.0-0.7); EOSINOPHILS % (AUTO) 9.8 %; HGB - HEMOGLOBIN 14.6 g/dL (12.0-16.0); LYMPHOCYTES # (AUTO) 2.3 10^3/uL (1.5-3.5); LYMPHOCYTES % (AUTO) 28.8 %; MEAN CORPUSCULAR HEMOGLOBIN 33.1 pg (27.0-31.0); MEAN CORPUSCULAR HGB CONC 34.8 g/dL (32.0-36.0); MEAN CORPUSCULAR VOLUME 95.2 fL (81.0-99.0); MEAN PLATELET VOLUME 9.3 fL (7.9-10.8); MONOCYTES # (AUTO) 0.7 10^3/uL (0.0-1.0); MONOCYTES % (AUTO) 8.7 %; NEUTROPHILS # (AUTO) 4.1 10^3/uL (1.5-6.6); NEUTROPHILS % (AUTO) 51.5 %; PLT - PLATELET COUNT 245 10^3/uL (130-450); RED BLOOD COUNT 4.41 10^6/uL (4.20-5.40); RED CELL DISTRIBUTION WIDTH 12.6 % (12.0-15.0); WHITE BLOOD COUNT 7.9 x10^3/uL (4.8-10.8)
[2019-12-08 11:05] LABS: ALBUMIN 4.1 g/dL (3.2-5.5); ALBUMIN/GLOBULIN RATIO 1.4 (1.0-2.2); ALKALINE PHOSPHATASE 58 IU/L (42-121); ALT ALANINE AMINOTRANSFERASE 17 IU/L (10-60); AST ASPARTATE AMINOTRANSFERASE 14 IU/L (10-42); BILIRUBIN,TOTAL 0.8 mg/dL (0.2-1.0); BUN - BLOOD UREA NITROGEN 10 mg/dL (6-20); CALCIUM 9.3 mg/dL (8.5-10.3); CARBON DIOXIDE - CO2 22 mmol/L (21-32); CHLORIDE 107 mmol/L (101-111); CHOL/HDL RATIO 4.7 (<4.4); CHOLESTEROL 207 mg/dL; CREATININE 0.7 mg/dL (0.4-1.0); GLUCOSE 92 mg/dL (70-100); HDL CHOLESTEROL 44 mg/dL; LDL CHOLESTEROL,CALCULATED 142 mg/dL; LDL/HDL RATIO 3.2 (<4.4); SODIUM 138 mmol/L (135-145); VLDL CHOLESTEROL 21 mg/dL
== END 2019-12-08 10:29 | disposition home or self-care (01) ==
LOC: LAB 10:28
PROVIDERS: ATTEND Nurse Practitioner Family
DX: Z00.00 Encounter for general adult medical examination without abnormal findings (principal)
CPT/HCPCS: 36415; 80053; 80061; 83721; 84443; 85025

== ENCOUNTER 2019-12-25 14:31 | Outpatient (CLI) | payer MEDICAID ==
--- NOTE | 2019-12-25 16:16 | XRAY Report ---
PROCEDURE: Knee 3 View LT INDICATIONS: LEFT KNEE PAIN TECHNIQUE: 3 views of the left knee(s) were acquired. COMPARISON: None. FINDINGS: Bones: No acute fractures or dislocations. Mild tricompartmental osteoarthritic changes of the left knee. Marginal osteophyte formation. No suspicious bony lesions. Soft tissues: Small suprapatellar joint effusion. No suspicious soft tissue calcifications. IMPRESSION: Tricompartmental osteoarthritic changes of the left knee with small suprapatellar joint effusion. No acute osseous abnormalities. Reviewed by: Rashawn Juarez MD on 12/25/2019 4:14 PM PDT Approved by: Rashawn Juarez MD on 12/25/2019 4:14 PM PDT Station ID: [id number]
== END 2019-12-25 14:32 | disposition home or self-care (01) ==
LOC: DI 14:31
PROVIDERS: ATTEND Nurse Practitioner Family
DX: M17.12 Unilateral primary osteoarthritis, left knee (principal); M25.462 Effusion, left knee

== ENCOUNTER 2020-02-27 11:02 | Emergency (ER) | payer MEDICAID ==
--- NOTE | 2020-02-27 13:14 | ED Physician Documentation ---
History of Present Illness - Stated complaint Stated Complaint: R SIDE PX - Chief complaint Chief Complaint: General - History obtained from History obtained from: Patient - Additonal information Additional information: Pt comes to the ED c/o mainly R knee pain after a GLF a couple of days ago. She states she was carrying her child and tripped. She fell to her knees, and then twisted to protect her child, landing on her R side. She states she feels as though she pulled her back when she fell, and has had some pain on the right side of the back. However, she states the main issue since the fall has been pain and swelling over her R patella. She can bear weight, but it hurts. She states she did not feel a "pop" or "crack upon landing. She does have a history of knee surgery previously, and wants to make sure nothing has been damaged. No numbness or tingling in the distal RLE. No other complaints at this time. Review of Systems Ten Systems: 10 systems reviewed and negative Constitutional: reports: Reviewed and negative Eyes: reports: Reviewed and negative Ears: reports: Reviewed and negative Nose: reports: Reviewed and negative Throat: reports: Reviewed and negative Cardiac: reports: Reviewed and negative Respiratory: reports: Reviewed and negative GI: reports: Reviewed and negative : reports: Reviewed and negative Skin: reports: Reviewed and negative Musculoskeletal: reports: Back pain, Joint pain Neurologic: reports: Reviewed and negative Psychiatric: reports: Reviewed and negative Endocrine: reports: Reviewed and negative Immunocompromised: reports: Reviewed and negative PD PAST MEDICAL HISTORY - Past Medical History Past Medical History: Yes Cardiovascular: None Respiratory: Asthma Neuro: None Endocrine/Autoimmune: None GI: None OUTREACH PROFESSIONAL: None : None HEENT: Other Psych: Claustrophobia Musculoskeletal: Osteoarthritis Derm: None - Past Surgical History Past Surgical History: Yes Ortho: Arthroscopic surgery, Carpal Tunnel surgery /OUTREACH PROFESSIONAL: section - Present Medications Home Medications: Ambulatory Orders Medication Instructions Recorded Confirmed Albuterol Sulfate [Proair Hfa] 8.5 gm IH TID PRN 11/27/12 02/27/20 Montelukast Sodium [Singulair] 10 mg PO DAILY 09/07/14 02/27/20 Tiotropium [place] [Spiriva] 2 puffs IN DAILY 12/30/14 02/27/20 Albuterol Sulf [Ventolin Hfa 1 - 2 puffs INH Q4HR PRN #1 inhaler 07/09/19 02/27/20 Inhaler] Cyclobenzaprine [Flexeril] 10 mg PO TID PRN #20 tablet 02/27/20 HYDROcod/ACETAM 5/325 [[place] 5/325] 1 - 2 ea PO Q6H PRN #9 tablet 02/27/20 - Allergies Allergies/Adverse Reactions: Allergies Allergy/AdvReac Type Severity Reaction Status Date / Time Band-aids AdvReac Intermediate Rash Uncoded 02/27/20 11:13 - Social History Does the pt smoke?: Yes Smoking Status: Current every day smoker Does the pt drink ETOH?: No Does the pt have substance abuse?: No - Immunizations Immunizations are current?: Yes - POLST Patient has POLST: No PD ED PE NORMAL - Vitals Vital signs reviewed: Yes - General General: Alert and oriented X 3, No acute distress - HEENT HEENT: Atraumatic, PERRL, EOMI, Moist mucous membranes - Neck Neck: Supple, no meningeal sign - Cardiac Cardiac: RRR, No murmur, Strong equal pulses - Respiratory Respiratory: No respiratory distress, Clear bilaterally - Abdomen Abdomen: Soft, Non tender, Non distended - Back Back: No spinal TTP, Other (moderate TTP over R lumbar paraspinal musculature) - Derm Derm: Normal color, Warm and dry, No rash - Extremities Extremities: No deformity, Other (mild edema over R patella. TTP mainly over medial joint line/medial patellofemoral ligament distribution. No knee instability. Able to raise straight leg off bed.) - Neuro Neuro: Alert and oriented X 3 - Psych Psych: Normal mood, Normal affect Results - Vitals Vitals: Oxygen O2 Source Room air - Rads (name of study) R knee XR Radiology: Final report received, EMP read indepedently, See rad report (No fx/disloc; trace effusion) PD MEDICAL DECISION MAKING - ED course Complexity details: reviewed results, re-evaluated patient, considered differential, d/w patient ED course: Pt was treated symptomatically in the ED, and X-rays were unremarkable. I d/w pt that she has most likely contused and possibly sprained her knee. She has been given a knee immobilizer and pair of crutches. We have discussed weightbearing as tolerated, and using brace/crutches as needed. We have discussed follow-up and the usual indications for return. Departure - Departure Disposition: 01 Home, Self Care Clinical Impression: Contusion, knee Qualifiers: Encounter type: initial encounter Laterality: right Qualified Code(s): S80.01XA - Contusion of right knee, initial encounter Lumbar strain Qualifiers: Encounter type: initial encounter Qualified Code(s): S39.012A - Strain of muscle, fascia and tendon of lower back, initial encounter Condition: Stable Instructions: ED Low Back Pain Injury Prescriptions: Cyclobenzaprine [Flexeril] 10 mg PO TID PRN #20 tablet PRN Reason: Spasms HYDROcod/ACETAM 5/325 [[place] 5/325] 1 - 2 ea PO Q6H PRN #9 tablet PRN Reason: Pain Comments: The x-ray shows evidence of your prior injuries/procedures, but no acute injury. You most likely bruised the knee which is caused swelling and the pain when you move the knee or bear weight. You may use the knee immobilizer and the crutches as needed to help support and stabilize your knee while it is healing. You may use the muscle relaxer and pain medication to help with your symptoms, as well. Please follow-up with your primary care physician, as needed, or if you are not feeling better in the next week. Discharge Date/Time: 02/27/20 13:22
[2020-02-27 13:19] VITALS: BP 136/81
--- NOTE | 2020-02-27 16:12 | XRAY Report ---
PROCEDURE: Knee 3 View RT INDICATIONS: injury TECHNIQUE: 3 views of the right knee(s) were acquired. COMPARISON: Right knee radiographs 10/25/2018. FINDINGS: Bones: No fractures or dislocations. Tricompartment osteophytosis. No suspicious bony lesions. Screws have been removed from the distal medial femur and patella as before. Soft tissues: Trace joint effusion. Mild new heterotopic ossification adjacent to the lateral femoral condyle. IMPRESSION: No fracture or dislocation. Trace joint effusion. Reviewed by: Pee Teran MD on 02/27/2020 3:10 PM [facility] Approved by: Pee Teran MD on 02/27/2020 3:10 PM [facility] Station ID: [id number]
== END 2020-02-27 13:22 | disposition home or self-care (01) ==
LOC: ED 11:02
DX: S80.01XA Contusion of right knee, initial encounter (principal); S39.012A Strain of muscle, fascia and tendon of lower back, initial encounter; W19.XXXA Unspecified fall, initial encounter; Y93.F2 Activity, caregiving, lifting; F17.200 Nicotine dependence, unspecified, uncomplicated
CPT/HCPCS: 99283; 99284

== ENCOUNTER 2020-03-20 11:08 | Emergency (ER) | payer MEDICAID ==
[2020-03-20 11:51] LABS: BASOPHILS # (AUTO) 0.1 10^3/uL (0.0-0.1); BASOPHILS % (AUTO) 0.7 %; EOSINOPHILS # (AUTO) 0.5 10^3/uL (0.0-0.7); EOSINOPHILS % (AUTO) 4.9 %; HGB - HEMOGLOBIN 14.7 g/dL (12.0-16.0); LYMPHOCYTES # (AUTO) 2.9 10^3/uL (1.5-3.5); LYMPHOCYTES % (AUTO) 29.9 %; MEAN CORPUSCULAR HGB CONC 35.3 g/dL (32.0-36.0); MEAN CORPUSCULAR VOLUME 93.7 fL (81.0-99.0); MEAN PLATELET VOLUME 9.6 fL (7.9-10.8); MONOCYTES # (AUTO) 0.5 10^3/uL (0.0-1.0); NEUTROPHILS # (AUTO) 5.7 10^3/uL (1.5-6.6); NEUTROPHILS % (AUTO) 59.3 %; PLT - PLATELET COUNT 270 10^3/uL (130-450); RED BLOOD COUNT 4.45 10^6/uL (4.20-5.40); WHITE BLOOD COUNT 9.6 x10^3/uL (4.8-10.8)
--- NOTE | 2020-03-20 12:02 | XRAY Report ---
PROCEDURE: Chest 1 View X-Ray INDICATIONS: Chest Pain TECHNIQUE: One view of the chest was acquired. COMPARISON: Chest radiograph 07/09/2019 FINDINGS: Surgical changes and devices: None. Lungs and pleura: No pleural effusions or pneumothorax. Lungs are clear. Mediastinum: Mediastinal contours appear normal. Heart size is normal. Bones and chest wall: No suspicious bony lesions. Overlying soft tissues appear unremarkable. IMPRESSION: No acute cardiopulmonary abnormality. Reviewed by: Leonides Whiting MD on 03/20/2020 12:00 PM [facility] Approved by: Leonides Whiting MD on 03/20/2020 12:00 PM [facility] Station ID: [id number]
[2020-03-20 12:03] LABS: ALBUMIN 4.3 g/dL (3.2-5.5); ALBUMIN/GLOBULIN RATIO 1.4 (1.0-2.2); BILIRUBIN,TOTAL 0.8 mg/dL (0.2-1.0); CREATININE 0.6 mg/dL (0.4-1.0); TOTAL PROTEIN 7.4 g/dL (6.7-8.2)
[2020-03-20] MEDS ORDERED: METOCLOPRAMIDE 10 MG/2 ML VIAL IVP STA (12:07)
[2020-03-20] MEDS ORDERED: diphenhydrAMINE INJ 50 MG/ML VIAL IVP STA (12:07)
[2020-03-20] MEDS ORDERED: SODIUM CHLORIDE 0.9% 1,000 ML IV STA (12:07)
--- NOTE | 2020-03-20 12:10 | ED Physician Documentation ---
History of Present Illness - Stated complaint Stated Complaint: CHEST PX/SOA - Chief complaint Chief Complaint: Neuro - History obtained from History obtained from: Patient - Additonal information Additional information: 30-year-old woman with history of asthma presents with headache, chest pain, and palpitations today. She saw her primary care physician few days ago who noted some elevated blood pressures in the range of 140/80. She is been monitoring at home today. Today her blood pressure went up to about 144/110. It was associated with occasional heart fluttering and a needlelike left upper chest pain which is nonradiating. Mild shortness of breath. She also complains of a global gradual onset headache without light sensitivity or nausea. She has a history of migraines but this is different. There is no neck stiffness, fevers, chills, leg pain or swelling. No recent travel. She was checked for coronavirus today, she gets checked biweekly by her work. Although the headache hurts more than the chest, the chest is more concerning to her. Review of Systems Constitutional: denies: Fever, Chills Eyes: denies: Loss of vision, Decreased vision, Photophobia Ears: denies: Ear pain Nose: denies: Rhinorrhea / runny nose, Congestion Throat: denies: Sore throat Cardiac: reports: Chest pain / pressure, Palpitations. denies: Pedal edema, Calf pain Respiratory: reports: Dyspnea. 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 : None HEENT: Other Psych: Claustrophobia Musculoskeletal: Osteoarthritis Derm: None - Past Surgical History Past Surgical History: Yes Ortho: Arthroscopic surgery, Carpal Tunnel surgery /SALES PROPERTY MANAGER: section - Present Medications Home Medications: Ambulatory Orders Medication Instructions Recorded Confirmed Albuterol Sulfate [Proair Hfa] 8.5 gm IH TID PRN 11/27/12 02/27/20 Montelukast Sodium [Singulair] 10 mg PO DAILY 09/07/14 02/27/20 Tiotropium [place] [Spiriva] 2 puffs IN DAILY 12/30/14 02/27/20 Albuterol Sulf [Ventolin Hfa 1 - 2 puffs INH Q4HR PRN #1 inhaler 07/09/19 02/27/20 Inhaler] Cyclobenzaprine [Flexeril] 10 mg PO TID PRN #20 tablet 02/27/20 HYDROcod/ACETAM 5/325 [[place] 5/325] 1 - 2 ea PO Q6H PRN #9 tablet 02/27/20 - Allergies Allergies/Adverse Reactions: Allergies Allergy/AdvReac Type Severity Reaction Status Date / Time Band-aids AdvReac Intermediate Rash Uncoded 03/20/20 11:19 - Social History Does the pt smoke?: Yes Smoking Status: Current every day smoker Does the pt drink ETOH?: No Does the pt have substance abuse?: No - Immunizations Immunizations are current?: Yes - POLST Patient has POLST: No PD ED PE NORMAL - Vitals Vital signs reviewed: Yes - General General: Alert and oriented X 3, No acute distress - HEENT HEENT: PERRL, EOMI - Neck Neck: Supple, no meningeal sign, No bony TTP - Cardiac Cardiac: RRR, No murmur - Respiratory Respiratory: No respiratory distress, Clear bilaterally - Abdomen Abdomen: Normal bowel sounds, Soft, Non tender - Back Back: No CVA TTP, No spinal TTP - Derm Derm: Normal color, Warm and dry - Extremities Extremities: No edema, No calf tenderness / cord - Neuro Neuro: Alert and oriented X 3, No motor deficit, No sensory deficit, Normal speech - Psych Psych: Normal mood, Normal affect Results - Vitals Vitals: Vital Signs - 24 hr 03/20/20 11:15 Temperature 36.8 C Heart Rate 84 Respiratory 14 Rate Blood Pressure 137/100 H O2 Saturation 99 Oxygen O2 Source Room air - EKG (time done) 1123 Rate: Rate (enter#) (85) Rhythm: NSR [place]: Normal Intervals: Normal GA QRS: Normal Ischemia: Normal ST segments Computer interpretation: Agree with computer - Labs Labs: Laboratory Tests 03/20/20 03/20/20 03/20/20 11:38 11:38 11:38 WBC 9.6 RBC 4.45 Hgb 14.7 Hct 41.7 MCV 93.7 MCH 33.0 H MCHC 35.3 RDW 12.0 Plt Count 270 MPV 9.6 Neut # (Auto) 5.7 Lymph # (Auto) 2.9 Cherry # (Auto) 0.5 Eos # (Auto) 0.5 Baso # (Auto) 0.1 Absolute Nucleated RBC 0.00 Nucleated RBC % 0.0 Sodium 136 Potassium 3.7 Chloride 102 Carbon Dioxide 20 L Anion Gap 14.0 H BUN 13 Creatinine 0.6 Estimated GFR (MDRD) 117 Glucose 93 Calcium 9.0 Total Bilirubin 0.8 AST 13 ALT 14 Alkaline Phosphatase 57 Troponin I High Sens < 2.3 L Total Protein 7.4 Albumin 4.3 Globulin 3.1 Albumin/Globulin Ratio 1.4 Lipase 24 Serum HCG, Qual 03/20/20 11:38 WBC RBC Hgb Hct MCV MCH MCHC RDW Plt Count MPV Neut # (Auto) Lymph # (Auto) Cherry # (Auto) Eos # (Auto) Baso # (Auto) Absolute Nucleated RBC Nucleated RBC % Sodium Potassium Chloride Carbon Dioxide Anion Gap BUN Creatinine Estimated GFR (MDRD) Glucose Calcium Total Bilirubin AST ALT Alkaline Phosphatase Troponin I High Sens Total Protein Albumin Globulin Albumin/Globulin Ratio Lipase Serum HCG, Qual NEGATIVE - Rads (name of study) 2v chest Radiology: EMP read contemporaneously (NAD) PD MEDICAL DECISION MAKING - ED course ED course: 30-year-old woman presents with chest pain, headache, palpitations mild hypertension. Exam and EKG are benign as are her labs. Heart score 1 for BMI. Feeling better after 2 4 BMI and tobacco. PERC negative. Feeling better after Reglan and Benadryl here. No clinical evidence of meningitis. History is inconsistent with subarachnoid hemorrhage. Departure - Departure Disposition: 01 Home, Self Care Clinical Impression: Headache Qualifiers: Headache type: unspecified Headache chronicity pattern: acute headache Intractability: not intractable Qualified Code(s): R51.9 - Headache, unspecified Chest pain Qualifiers: Chest pain type: unspecified Qualified Code(s): R07.9 - Chest pain, unspecified Condition: Stable Record reviewed to determine appropriate education?: Yes Instructions: ED Chest Pain NonCardiac, ED Cephalgia Unspecified Comments: Testing demonstrates no serious or concerning cause of the symptoms you are having today but please return if worsening or if new symptoms develop. Follow- up with your primary care physician as scheduled.
[2020-03-20 12:13] LABS: HCG,QUALITATIVE BLOOD NEGATIVE
[2020-03-20 13:10] VITALS: BP 135/87
== END 2020-03-20 13:10 | disposition home or self-care (01) ==
LOC: ED 11:08
DX: R07.9 Chest pain, unspecified (principal); R51.9 Headache, unspecified; J45.909 Unspecified asthma, uncomplicated; F17.200 Nicotine dependence, unspecified, uncomplicated
CPT/HCPCS: 36415; 71045; 80053; 83690; 84484; 84703; 85025; 93005; 96374; 96375; 99284; J1200; J2765

== ENCOUNTER 2020-05-07 16:28 | Outpatient (CLI) | payer MEDICAID ==
--- NOTE | 2020-05-07 17:57 | Ultrasound Report ---
PROCEDURE: Pelvic w/Transvaginal INDICATIONS: MENORRHAGIA TECHNIQUE: Real-time scanning was performed of the pelvic organs, with image documentation. Additional endovagi nal scanning was necessary due to incomplete visualization of the adnexal and endometrial structures by transabdominal scanning. COMPARISON: 01/04/2016 FINDINGS: No pathologic free abdominal or pelvic fluid. Uterus: Uterus is normal in size at 7.9 x 3.3 x 5.2 cm. The endometrium measures 3 mm in combined t hickness. Ovaries: The right ovary measures 1.9 x 2.5 x 1.9 cm and the left ovary measures 2.3 x 1.9 x 2.1 cm. There is an apparent hemorrhagic cyst involving the left ovary measuring up to 9 mm. There are less than 12 follicles seen on each side. No adnexal masses are seen. IMPRESSION: No imaging explanation is found for the patient's presenting symptoms. 9 mm left ovarian hemorrhagic cyst. If clinically appropriate, please consider a short-term follow-u p ultrasound in 6 weeks to ensure resolution/improvement. Reviewed by: Kendrick James MD on 05/07/2020 4:56 PM [facility] Approved by: Kendrick James MD on 05/07/2020 4:56 PM [facility] Station ID: [id number]
== END 2020-05-07 16:29 | disposition home or self-care (01) ==
LOC: DI 16:28
PROVIDERS: ATTEND Advanced Practice Midwife
DX: N92.0 Excessive and frequent menstruation with regular cycle (principal); N83.202 Unspecified ovarian cyst, left side

== ENCOUNTER 2020-06-24 14:19 | Outpatient (CLI) | payer MEDICAID ==
--- NOTE | 2020-06-24 15:38 | Ultrasound Report ---
PROCEDURE: Pelvic w/Transvaginal INDICATIONS: OVARIAN CYST TECHNIQUE: Real-time scanning was performed of the pelvic organs, with image documentation. Additional endovagi nal scanning was necessary due to incomplete visualization of the adnexal and endometrial structures by transabdominal scanning. COMPARISON: 05/07/2020 FINDINGS: No pathologic free abdominal or pelvic fluid. Uterus: Uterus is normal in size at 7.8 x 3.5 x 4.3 cm. The endometrium measures 3 mm in combined t hickness. Ovaries: The right ovary measures 1.6 x 2.1 x 1.1 cm and the left ovary measures 2.4 x 1.5 x 1.6 cm. The previously seen left ovarian hemorrhagic cyst is no longer seen. No significant ovarian abnormal ities are seen. There are less than 12 follicles seen on each side. No adnexal masses are seen. IMPRESSION: Normal pelvic ultrasound, with resolution of the previously seen left ovarian hemorrhagic cyst. Reviewed by: Kendrick James MD on 06/24/2020 2:36 PM [facility] Approved by: Kendrick James MD on 06/24/2020 2:36 PM [facility] Station ID: [id number]
== END 2020-06-24 14:20 | disposition home or self-care (01) ==
LOC: DI 14:19
PROVIDERS: ATTEND Nurse Practitioner Obstetrics & Gynecology
DX: N83.202 Unspecified ovarian cyst, left side (principal)

== ENCOUNTER 2020-10-28 15:36 | Emergency (ER) | payer MEDICAID ==
[2020-10-28 16:00] VITALS: BP 140/80
--- NOTE | 2020-10-28 16:29 | ED Physician Documentation ---
PD HPI WOUND RECHECK - Stated complaint Stated Complaint: HAND/FEET BLISTERS - Chief complaint Chief Complaint: Wound - Histroy obtained from History obtained from: Patient - Additional information Additional information: For about a month and a half she has had a worsening rash on the hands and now the feet. Seen at walk-in clinic and felt it was fungal and started a topical antifungal agent which has made it worse. 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: section - Present Medications Home Medications: Ambulatory Orders Medication Instructions Recorded Confirmed Albuterol Sulfate [Proair Hfa] 8.5 gm IH TID PRN 11/27/12 02/27/20 Montelukast Sodium [Singulair] 10 mg PO DAILY 09/07/14 02/27/20 Tiotropium [place] [Spiriva] 2 puffs IN DAILY 12/30/14 02/27/20 Albuterol Sulf [Ventolin Hfa 1 - 2 puffs INH Q4HR PRN #1 inhaler 07/09/19 02/27/20 Inhaler] Cyclobenzaprine [Flexeril] 10 mg PO TID PRN #20 tablet 02/27/20 HYDROcod/ACETAM 5/325 [[place] 5/325] 1 - 2 ea PO Q6H PRN #9 tablet 02/27/20 Triamcinolone 0.1% Oint 1 applic TOP BID #2 tub 10/28/20 predniSONE [Deltasone] 20 mg PO [id number] #21 tab 10/28/20 - Allergies Allergies/Adverse Reactions: Allergies Allergy/AdvReac Type Severity Reaction Status Date / Time Band-aids AdvReac Intermediate Rash Uncoded 10/28/20 15:56 - Social History Does the pt smoke?: Yes Smoking Status: Current every day smoker Does the pt drink ETOH?: No Does the pt have substance abuse?: No - Immunizations Immunizations are current?: Yes - POLST Patient has POLST: No PD ED PE NORMAL - Vitals Vital signs reviewed: Yes - General General: Alert and oriented X 3, No acute distress - Extremities Extremities: Other (She has eczema in the intertriginous areas of the hands and around the toes of the feet. No facial involvement. No rashes.) - Neuro Neuro: Alert and oriented X 3, Normal speech Results - Vitals Vitals: Vital Signs - 24 hr 10/28/20 15:56 Temperature 36.5 C Heart Rate 88 Respiratory 16 Rate Blood Pressure 140/80 H O2 Saturation 100 Oxygen O2 Source Room air Departure - Departure Disposition: Home, Self Care Clinical Impression: Eczema Condition: Good Record reviewed to determine appropriate education?: Yes Instructions: ED Dermatitis Atopic Eczema Follow-Up: [facility] [Provider Group] Prescriptions: predniSONE [Deltasone] 20 mg PO [id number] #21 tab Triamcinolone 0.1% Oint 1 applic TOP BID #2 tub Comments: Prescriptions were sent electronically to [facility] in [place]. Return for new or worsening symptoms. Follow-up with dermatology, the numbers on this form to call Friday.
== END 2020-10-28 16:39 | disposition home or self-care (01) ==
LOC: ED 15:36
DX: L30.9 Dermatitis, unspecified (principal); F17.200 Nicotine dependence, unspecified, uncomplicated
CPT/HCPCS: 99282; 99283

== ENCOUNTER 2020-12-16 15:43 | Outpatient (CLI) | payer OTHER, MEDICAID ==
--- NOTE | 2020-12-16 17:12 | XRAY Report ---
PROCEDURE: Lumbar Spine 2 View INDICATIONS: LOW BACK PAIN / MUSCLE STRAIN TECHNIQUE: 3 views of the lumbar spine were acquired. COMPARISON: None. FINDINGS: Bones: 5 [id number] vertebrae are present. There is normal bony alignment. No vertebral body compression fractures. No suspicious bony lesions. Soft tissues: Overlying bowel gas pattern is normal. No suspicious soft tissue calcifications. IMPRESSION: Unremarkable lumbar spine radiographs Reviewed by: Gabriele Sánchez MD on 12/16/2020 4:11 PM [facility] Approved by: Gabriele Sánchez MD on 12/16/2020 4:11 PM [facility] Station ID: [id number]
== END 2020-12-16 23:59 | disposition home or self-care (01) ==
LOC: DI.N 15:43
PROVIDERS: ATTEND Family Medicine
DX: S39.012A Strain of muscle, fascia and tendon of lower back, initial encounter (principal)

== ENCOUNTER 2021-07-25 08:44 | Outpatient (CLI) | payer MEDICAID ==
--- NOTE | 2021-07-25 10:01 | XRAY Report ---
PROCEDURE: Knee 2 View RT INDICATIONS: ARTHRITIS, R KNEE TECHNIQUE: 2 views of the right knee(s) were acquired. COMPARISON: February 27, 2020. FINDINGS: BONES/JOINT: No acute, displaced fracture or dislocation. Small suprapatellar joint effusion. Mild to moderate tricompartment arthrosis with joint space loss and osteophytosis. Linear lucency in the med ial femoral condyle, likely reflecting postsurgical change. A 2.1 x 1.2 cm calcific lesion projects a djacent to the lateral patella, concerning for intra-articular body versus myositis ossificans. Conto ur irregularity of the lateral femoral condyle, likely reflecting osteochondral injury. SOFT TISSUES: No significant abnormality. IMPRESSION: 1.Knee degeneration as detailed above. Reviewed by: Jero Baeza MD on 07/25/2021 10:00 AM PDT Approved by: Jero Baeza MD on 07/25/2021 10:00 AM PDT Station ID: [id number]
== END 2021-07-25 23:59 | disposition home or self-care (01) ==
LOC: DI.N 08:44
PROVIDERS: ATTEND Family Medicine
DX: M17.11 Unilateral primary osteoarthritis, right knee (principal); M25.761 Osteophyte, right knee; R93.6 Abnormal findings on diagnostic imaging of limbs

== ENCOUNTER 2021-07-31 13:15 | Outpatient (CLI) | payer MEDICAID ==
--- NOTE | 2021-07-31 17:50 | XRAY Report ---
PROCEDURE: Knee 3 View RT INDICATIONS: RIGHT KNEE PAIN TECHNIQUE: 3 views of the right knee(s) were acquired. COMPARISON: 07/25/2021, 02/27/2020 FINDINGS: Bones: No acute fractures or dislocations. No suspicious bony lesions. Stable cortical irregularity involving the medial patellar facet seen on the sunrise view. Moderate tricompartmental degenerative changes of the right knee which is not significantly changed. Prominent marginal osteophyte formatio n. There are also osteophytic changes of the left knee seen on the bilateral frontal view. There is m inimal joint space narrowing of the medial femorotibial compartment bilaterally as well as mild later al femorotibial compartment narrowing of the right knee. Stable calcific lesion projecting lateral to the patella. This is not seen on the sunrise view and appears to be more proximal to the patella. Th is may represent myositis ossificans/heterotopic ossification. Stable linear lucency of the medial fe moral condyle likely from prior surgical procedure. Contour irregularity of the lateral femoral condy le also likely related to prior surgical intervention. Soft tissues: No suspicious soft tissue calcifications. IMPRESSION: Moderate tricompartmental osteoarthrosis of the right knee as detailed above. Reviewed by: Rashawn Juarez MD on 07/31/2021 5:48 PM PDT Approved by: Rashawn Juarez MD on 07/31/2021 5:48 PM PDT Station ID: [id number]
== END 2021-07-31 23:59 | disposition home or self-care (01) ==
LOC: DI.WOS 13:15
PROVIDERS: ATTEND Physician Assistant
DX: M17.11 Unilateral primary osteoarthritis, right knee (principal)

== ENCOUNTER 2021-11-22 10:26 | Emergency (ER) | payer MEDICAID ==
[2021-11-22] MEDS ORDERED: SULFAMETH/TRIMETH DS 800/160 MG TABLET PO STA (11:19)
--- NOTE | 2021-11-22 11:22 | ED Physician Documentation ---
PD HPI SKIN - Stated complaint Stated Complaint: L LEG PAIN/SWELLING - Chief complaint Chief Complaint: Wound - History obtained from History obtained from: Patient - Additional information Additional information: The patient comes to the emergency department chief complaint of erythema and pain of left lower extremity for the last 2 days. She states that about a week and a half ago, she went to [place] and believes she had a reaction to the chemicals in the water there. She began to develop blisters and pustules on her hands and feet, As well as desquamation. The patient states that this is doing quite a bit better with time and after starting prednisone and cetirizine. The patient, however, began to notice redness developing on her left ochoa yesterday and states that the area of redness is gotten bigger. It is tender. She has not noticed any skin lesions in that area. The patient denies any fevers or chills. No red streaking on her leg. No similar patches anywhere else. Review of Systems Ten Systems: 10 systems reviewed and negative Constitutional: reports: Reviewed and negative Eyes: reports: Reviewed and negative Ears: reports: Reviewed and negative Nose: reports: Reviewed and negative Throat: reports: Reviewed and negative Cardiac: reports: Reviewed and negative Respiratory: reports: Reviewed and negative GI: reports: Reviewed and negative : reports: Reviewed and negative Skin: reports: Lesions Musculoskeletal: reports: Reviewed and negative Neurologic: reports: Reviewed and negative Psychiatric: reports: Reviewed and negative Endocrine: reports: Reviewed and negative Immunocompromised: reports: Reviewed and negative PD PAST MEDICAL HISTORY - Past Medical History Cardiovascular: None Respiratory: Asthma Neuro: None Endocrine/Autoimmune: None GI: None 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 : None HEENT: Other Psych: Claustrophobia Musculoskeletal: Osteoarthritis Derm: None - Past Surgical History Past Surgical History: Yes Ortho: Arthroscopic surgery, Carpal Tunnel surgery /TUNNEL ELASTIC OPERATOR ZIGZAG: section - Present Medications Home Medications: Ambulatory Orders Medication Instructions Recorded Confirmed Albuterol Sulfate [Proair Hfa] 8.5 gm IH TID PRN 11/27/12 02/27/20 Montelukast Sodium [Singulair] 10 mg PO DAILY 09/07/14 02/27/20 Tiotropium [place] [Spiriva] 2 puffs IN DAILY 12/30/14 02/27/20 Albuterol Sulf [Ventolin Hfa 1 - 2 puffs INH Q4HR PRN #1 inhaler 07/09/19 02/27/20 Inhaler] Cyclobenzaprine [Flexeril] 10 mg PO TID PRN #20 tablet 02/27/20 HYDROcod/ACETAM 5/325 [[place] 5/325] 1 - 2 ea PO Q6H PRN #9 tablet 02/27/20 Triamcinolone 0.1% Oint 1 applic TOP BID #2 tub 10/28/20 predniSONE [Deltasone] 20 mg PO [id number] #21 tab 10/28/20 Sulfamethox/Trimeth 800/160 1 each PO BID #14 tablet 11/22/21 [Bactrim Ds 800/160] - Allergies Allergies/Adverse Reactions: Allergies Allergy/AdvReac Type Severity Reaction Status Date / Time bacitracin Allergy Rash Verified 11/22/21 10:33 Band-aids AdvReac Intermediate Rash Uncoded 10/28/20 15:56 - Social History Does the pt smoke?: Yes Smoking Status: Current every day smoker Does the pt drink ETOH?: No Does the pt have substance abuse?: No - Immunizations Immunizations are current?: Yes - POLST Patient has POLST: No PD ED PE NORMAL - Vitals Vital signs reviewed: Yes - General General: Alert and oriented X 3, No acute distress, Well developed/nourished - HEENT HEENT: Atraumatic, PERRL, EOMI, Moist mucous membranes - Neck Neck: Supple, no meningeal sign - Cardiac Cardiac: Strong equal pulses - Respiratory Respiratory: No respiratory distress - Derm Derm: Warm and dry, Other (Multiple pustules and scabbed lesions with peeling skin on bilateral feet and hands. Approximately 20 cm patch of erythema on anterior medial and lateral left lower extremity with more intense erythema centrally located. Tender to palpation. No fluctuance or induration. No streaking) - Extremities Extremities: No deformity, No edema - Neuro Neuro: Alert and oriented X 3, electronic prepress technician 2-12 intact, Normal speech - Psych Psych: Normal mood, Normal affect Results - Vitals Vitals: Vital Signs - 24 hr 11/22/21 10:30 Temperature 36.4 C L Heart Rate 116 H Respiratory 16 Rate Blood Pressure 147/107 H O2 Saturation 97 Oxygen O2 Source Room air PD MEDICAL DECISION MAKING - ED course Complexity details: considered differential, d/w patient ED course: I discussed with the patient that the area on her leg appears to be a cellulitis. I have started on Bactrim here in the emergency department and sent a prescription for the same to the pharmacy of her choice. She may continue to take the prednisone and cetirizine as directed. We have discussed the usual indications for return. Departure - Departure Disposition: 01 Home, Self Care Clinical Impression: Cellulitis Qualifiers: Site of cellulitis: extremity Site of cellulitis of extremity: lower extremity Laterality: left Qualified Code(s): L03.116 - Cellulitis of left lower limb Condition: Stable Instructions: ED Infec Skin Cellulitis Prescriptions: Sulfamethox/Trimeth 800/160 [Bactrim Ds 800/160] 1 each PO BID #14 tablet Comments: Your prescription has been electronically transmitted to [facility] pharmacy in [place].
[2021-11-22 11:41] VITALS: BP 142/88
== END 2021-11-22 11:40 | disposition home or self-care (01) ==
LOC: ED 10:26
DX: L03.116 Cellulitis of left lower limb (principal); F17.200 Nicotine dependence, unspecified, uncomplicated
CPT/HCPCS: 99282; A9270

== ENCOUNTER 2021-12-13 08:00 | Outpatient (CLI) | payer MEDICAID ==
--- NOTE | 2021-12-14 08:46 | XRAY Report ---
PROCEDURE: Knee 4 View RT INDICATIONS: RIGHT KNEE PAIN TECHNIQUE: 4 views of the right knee, 1 view of the left knee were acquired. COMPARISON: Right knee radiographs 07/31/2021. FINDINGS: Bones: No acute fractures or dislocations. Moderate lateral compartment and mild medial compartment narrowing of the right knee. Tricompartmental spurring is present. Medial and lateral compartment na rrowing and spurring also present within the left knee. Soft tissues: No right knee joint effusion. Similar rounded calcification projecting adjacent to the lateral femoral condyle, nonspecific, possibly postinflammatory. IMPRESSION: 1. No acute fracture visualized. 2. Similar degenerative changes of the right knee. Reviewed by: Leonides Pitts MD on 12/14/2021 8:44 AM PDT Approved by: Leonides Pitts MD on 12/14/2021 8:44 AM PDT Station ID: [id number]
== END 2021-12-13 23:59 | disposition home or self-care (01) ==
LOC: DI.WOS 08:00
PROVIDERS: ATTEND Physician Assistant
DX: M17.11 Unilateral primary osteoarthritis, right knee (principal)

== ENCOUNTER 2022-06-24 08:00 | Outpatient (CLI) | payer MEDICAID ==
--- NOTE | 2022-06-24 14:51 | XRAY Report ---
PROCEDURE: Knee 4 View RT INDICATIONS: RIGHT KNEE PAIN TECHNIQUE: 4 views of the right knee(s) were acquired. COMPARISON: None. FINDINGS: Bones: No fractures or dislocations. No suspicious bony lesions. Tricompartmental joint space narro wing with associated osteophytosis. Subchondral sclerosis of the patella and lateral tibial plateau. Soft tissues: No effusion. No suspicious soft tissue calcifications or masses. 1.8 cm ossification w ith irregular margins projecting superior and lateral to the patella. IMPRESSION: Moderate tricompartmental osteophytosis. 1.8 cm ossification with irregular margins projecting superior and lateral to the patella, concerning for a joint loose body. Reviewed by: Sam Miguel on 06/24/2022 2:50 PM PDT Approved by: Sam Miguel on 06/24/2022 2:50 PM PDT Station ID: [id number]
== END 2022-06-24 23:59 | disposition home or self-care (01) ==
LOC: DI.WOS 08:00
PROVIDERS: ATTEND Physician Assistant Surgical
DX: M17.11 Unilateral primary osteoarthritis, right knee (principal)

== ENCOUNTER 2022-07-16 08:00 | Outpatient (CLI) | payer BC, MEDICAID ==
--- NOTE | 2022-07-16 15:14 | XRAY Report ---
PROCEDURE: Shoulder 3 View RT INDICATIONS: RIGHT SHOULDER PAIN TECHNIQUE: 4 views of the shoulder were acquired. COMPARISON: None. FINDINGS: Bones: No fractures or dislocations. Mild acromioclavicular joint space narrowing is seen. No suspic ious bony lesions. Visualized ribs appear intact. Soft tissues: No suspicious soft tissue calcifications. IMPRESSION: Mild acromioclavicular joint space narrowing. No shoulder fracture or dislocation. No gross soft tiss ue abnormalities. Reviewed by: Jerzy Lloyd MD on 07/16/2022 3:13 PM PDT Approved by: Jerzy Lloyd MD on 07/16/2022 3:13 PM PDT Station ID: [id number]
== END 2022-07-16 23:59 | disposition home or self-care (01) ==
LOC: DI.WOS 08:00
PROVIDERS: ATTEND Physician Assistant Surgical
DX: M19.011 Primary osteoarthritis, right shoulder (principal)

== ENCOUNTER 2022-08-27 13:13 | Outpatient (CLI) | payer BC ==
--- NOTE | 2022-08-27 16:28 | CT Report ---
PROCEDURE: SINUS SCREENING WO INDICATIONS: CHRONIC PANSINUSITIS TECHNIQUE: Noncontrast 3.0 mm axial images acquired from the frontal sinuses to the mid-sella, with coronal and sagittal reformats. For radiation dose reduction, the following was used: automated exposure control , adjustment of mA and/or kV according to patient size. COMPARISON: None. FINDINGS: Image quality: Excellent. Sinuses: Prominent mucus retention cyst versus polyp is present in the right maxillary sinus. Very mi nimal scattered areas of mucosal thickening are present within the remaining sinuses. No fluid levels are identified. Ostiomeatal Complexes: Ostiomeatal complexes are patent. No Destiny cells. Miscellaneous: Visualized intra-orbital contents are normal. No neha bullosa. No nasal septal d eviation. There is a paradoxical right middle turbinate. There is mild hypertrophy of the inferior turbinates in relation to the middle turbinates. IMPRESSION: Mucous retention cyst versus polyp in the right maxillary sinus. Ostiomeatal complexes are patent. Reviewed by: Lupe Fernandez MD on 08/27/2022 4:26 PM PDT Approved by: Lupe Fernandez MD on 08/27/2022 4:26 PM PDT Station ID: [id number]
== END 2022-08-27 13:14 | disposition home or self-care (01) ==
LOC: DI 13:13
PROVIDERS: ATTEND Otolaryngology
DX: J32.4 Chronic pansinusitis (principal); J34.89 Other specified disorders of nose and nasal sinuses

== ENCOUNTER 2023-02-04 08:00 | Outpatient (CLI) | payer BC ==
--- NOTE | 2023-02-04 11:00 | XRAY Report ---
PROCEDURE: Knee 4 View LT INDICATIONS: LEFT KNEE PAIN TECHNIQUE: 4 views of the knee(s) were acquired. COMPARISON: None. FINDINGS: Bones: Both knees have tricompartmental degenerative changes. There are tricompartmental osteophytes . Lateral and sunrise views of the left knee were performed. The right knee has a 2.2 cm ossification in the superior lateral joint space unchanged compared to prior. Soft tissues: No knee joint effusion. No suspicious soft tissue calcifications or masses. IMPRESSION: 1. No acute abnormality. 2. Tricompartmental degenerative changes in both knees consistent with osteoarthritis. Reviewed by: Dylan Martinez on 02/04/2023 10:58 AM [facility] Approved by: Dylan Martinez on 02/04/2023 10:58 AM [facility] Station ID: [id number]
== END 2023-02-04 23:59 | disposition home or self-care (01) ==
LOC: DI.WOS 08:00
PROVIDERS: ATTEND Physician Assistant Surgical
DX: M17.0 Bilateral primary osteoarthritis of knee (principal)

== ENCOUNTER 2023-05-28 07:21 | Outpatient (CLI) | payer OTHER ==
[2023-05-28 11:37] LABS: BASOPHILS # (AUTO) 0.1 10^3/uL (0.0-0.1); BASOPHILS % (AUTO) 0.7 %; EOSINOPHILS # (AUTO) 0.3 10^3/uL (0.0-0.7); EOSINOPHILS % (AUTO) 4.8 %; HCT - HEMATOCRIT 46.5 % (37.0-47.0); HGB - HEMOGLOBIN 15.2 g/dL (12.0-16.0); LYMPHOCYTES % (AUTO) 29.2 %; MEAN CORPUSCULAR HEMOGLOBIN 31.2 pg (27.0-31.0); MEAN CORPUSCULAR HGB CONC 32.7 g/dL (32.0-36.0); MEAN CORPUSCULAR VOLUME 95.5 fL (81.0-99.0); MEAN PLATELET VOLUME 9.8 fL (7.9-10.8); MONOCYTES # (AUTO) 0.6 10^3/uL (0.0-1.0); MONOCYTES % (AUTO) 8.6 %; NEUTROPHILS # (AUTO) 3.9 10^3/uL (1.5-6.6); NEUTROPHILS % (AUTO) 56.6 %; PLT - PLATELET COUNT 296 10^3/uL (130-450); RED BLOOD COUNT 4.87 10^6/uL (4.20-5.40); RED CELL DISTRIBUTION WIDTH 12.3 % (12.0-15.0); WHITE BLOOD COUNT 6.9 x10^3/uL (4.8-10.8)
[2023-05-28 12:05] LABS: ESTIMATED AVERAGE GLUCOSE 111 mg/dL (70-100); HEMOGLOBIN A1c% 5.5 % (4.27-6.07)
[2023-05-28 12:57] LABS: ALBUMIN 4.3 g/dL (3.2-5.5); ALBUMIN/GLOBULIN RATIO 1.5 (1.0-2.2); ALKALINE PHOSPHATASE 67 IU/L (42-121); ALT ALANINE AMINOTRANSFERASE 15 IU/L (10-60); AST ASPARTATE AMINOTRANSFERASE 14 IU/L (10-42); BILIRUBIN,TOTAL 0.5 mg/dL (0.2-1.0); BUN - BLOOD UREA NITROGEN 14 mg/dL (6-20); CALCIUM 9.7 mg/dL (8.5-10.3); CARBON DIOXIDE - CO2 25 mmol/L (21-32); CHLORIDE 108 mmol/L (101-111); CHOL/HDL RATIO 4.2 (<4.4); CHOLESTEROL 198 mg/dL; CREATININE 0.7 mg/dL (0.6-1.3); GFR - MDRD 96 (>89); GLUCOSE 97 mg/dL (74-104); HDL CHOLESTEROL 47 mg/dL; LDL CHOLESTEROL,CALCULATED 131 mg/dL; LDL/HDL RATIO 2.8 (<4.4); POTASSIUM 4.5 mmol/L (3.5-4.5); SODIUM 137 mmol/L (135-145); TOTAL PROTEIN 7.2 g/dL (6.4-8.9); TRIGLYCERIDES 100 mg/dL (48-352); VLDL CHOLESTEROL 20 mg/dL
[2023-05-28 13:03] LABS: THYROID STIMULATING HORMONE 1.88 uIU/mL (0.34-5.60)
== END 2023-05-28 07:22 | disposition home or self-care (01) ==
LOC: LAB.N 07:21
PROVIDERS: ATTEND Nurse Practitioner Family
DX: Z00.00 Encounter for general adult medical examination without abnormal findings (principal); E66.01 Morbid (severe) obesity due to excess calories
CPT/HCPCS: 36415; 80053; 80061; 83036; 83721; 84443; 85025

== ENCOUNTER 2023-12-02 08:00 | Outpatient (CLI) | payer OTHER ==
[2023-12-02 19:52] LABS: BACTERIAL VAGINOSIS DNA NEGATIVE (NEGATIVE); CANDIDA GLABRATA DNA NEGATIVE (NEGATIVE); CANDIDA GROUP DNA POSITIVE (NEGATIVE); CANDIDA KRUSEI DNA NEGATIVE (NEGATIVE); TRICHOMONAS VAGINALIS DNA NEGATIVE (NEGATIVE)
== END 2023-12-02 08:15 | disposition home or self-care (01) ==
LOC: LAB.N 08:00
PROVIDERS: ATTEND Physician Assistant Medical
DX: N89.8 Other specified noninflammatory disorders of vagina (principal); R30.0 Dysuria
CPT/HCPCS: 81514; 87086

== ENCOUNTER 2023-12-09 09:30 | Outpatient (CLI) | payer OTHER ==
[2023-12-09 15:23] LABS: CHLAMYDIA TRACHOMATIS DNA NEGATIVE (NEGATIVE); NEISSERIA GONORRHOEAE DNA NEGATIVE (NEGATIVE)
[2023-12-09 17:21] LABS: BACTERIAL VAGINOSIS DNA NEGATIVE (NEGATIVE); CANDIDA GLABRATA DNA NEGATIVE (NEGATIVE); CANDIDA GROUP DNA NEGATIVE (NEGATIVE); CANDIDA KRUSEI DNA NEGATIVE (NEGATIVE); TRICHOMONAS VAGINALIS DNA NEGATIVE (NEGATIVE)
== END 2023-12-09 09:45 | disposition home or self-care (01) ==
LOC: LAB.N 09:30
PROVIDERS: ATTEND Physician Assistant Medical
DX: L29.8 Other pruritus (principal); R10.30 Lower abdominal pain, unspecified
CPT/HCPCS: 81514; 87086; 87491; 87591; 87661